=== PATIENT | female | born 1950 | race Caucasian/White ===

== ENCOUNTER → 2017-03-05 | Outpatient (CLI) | payer MEDICARE ==
[~2017-03-05] MED LIST: ASPI81TA85 PO; CLEO150C PO; COLA100C3 PO; DOXY100T16 PO; ELIQ5TAB PO; GABA-282 PO; GLIP5TAB8 PO; HYDR12.55 PO; LOVA20TA2 PO; MECL-68 PO; MELA1TAB15 PO; METF-699 PO; METF500T PO; OXYC-517 PO; OXYC1TAB23 PO; PERC5TAB6 PO; PRAV1TAB39 PO; PRIL20CA9 PO; SENN8.6C PO; SILV-4 TOP; SYNT50TA PO; TRAM50TA2 PO; TYLE325T5 PO; VITA100041 PO; VITA100066 PO; VITMTA PO; WOMETAB2 PO; ZOLO50TA PO
--- NOTE | 2017-03-06 07:36 | RADONC ---
RADIATION ONCOLOGY FOLLOWUP NOTE DATE: 03/05/2017 CHART NUMBER: [id number]. DIAGNOSIS: Pleomorphic leiomyosarcoma. Stage: III, [id number]. ECOG PERFORMANCE STATUS: 0. FOLLOWUP NOTE: Ms. 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 The patient presents today reporting that she is doing quite well with no complaints at this time related to her radiation therapy or disease other than lymphedema of her lower right extremity. The patient had a corrective skin flap placed over her surgical wound, which is now sealed and healed nicely. REVIEW OF SYSTEMS: The patient's review of systems is largely noncontributory except for lymphedema of her right lower extremity. Denies nausea, vomiting, fevers, chills, night sweats, diplopia, headaches, anxiety or depression, anorexia, weight loss, visual disturbances, chest pain, urinary or bowel difficulties, bone pain, or neurological problems. PHYSICAL EXAMINATION: The patient is a well-developed, well-nourished, white female in no acute distress. HEENT: Exam is normocephalic, atraumatic. Extraocular movements are intact. There is no palpable cervical, supraclavicular, infraclavicular, axillary or inguinal lymphadenopathy present. Her lungs are clear to auscultation and percussion. Her heart has regular rate and rhythm. Her abdomen is benign with no hepatosplenomegaly, masses or tenderness. Skeletal examination reveals no tenderness to pressure or percussion of the bony skeleton. Extremities reveal marked pitting edema of her right lower extremity. There is a healed surgical scar present with a surgical corrected flap. There is no opening or sign of infection. There is no sign of drainage. ASSESSMENT: The patient is clinically stable at this point. A previous CT scan of the lung done 04/03/2016 showed a 2 cm nodule present. This is being followed by Dr. Britton with routine CT scans of the chest in [place]. In addition, Dr. Britton is ordering MRIs of the leg and following those closely. She is also being seen in the lymphedema clinic as well as the wound center. I do not have access to any of this patient's CT scans at the present time and I will defer to Dr. Britton with regards to following her lung nodule. I did have a lengthy discussion with the patient and her to let her know that this needs to be followed closely. They report that they are scheduled see Dr. Britton within the next couple of weeks and that another CT scan is planned. I have set the patient up for routine followup in our office in 6 months' time. cc: *Randolph Rodarte MD *Saw Britton MD
== END ==
LOC: M ONCR 11:09
PROVIDERS: ATTEND Radiology Radiation Oncology
DX: C49.21 Malignant neoplasm of connective and soft tissue of right lower limb, including hip (principal)

== ENCOUNTER 2017-03-16 09:15 | Outpatient (RCR) | payer MEDICARE | END 2017-03-18 | LOC: M PT 09:15 | PROVIDERS: ATTEND Surgery | DX: Z51.89 Encounter for other specified aftercare (principal); I89.0 Lymphedema, not elsewhere classified | CPT/HCPCS: 97140; 97162; G8978; G8979 ==

== ENCOUNTER 2017-04-02 10:00 | Outpatient (RCR) | payer MEDICARE | END 2017-04-05 15:16 | disposition home or self-care (01) | LOC: M PT 10:00 | PROVIDERS: ATTEND Surgery | DX: Z51.89 Encounter for other specified aftercare (principal); I89.0 Lymphedema, not elsewhere classified | CPT/HCPCS: 97140; G8978; G8979; G8980 ==

== ENCOUNTER → 2017-08-29 | Outpatient (CLI) | payer MEDICARE ==
[~2017-08-29] MED LIST changes: -COLA100C3 PO; +COLA100C5 PO; -METF500T PO; +METF500T13 PO; +PERC5TAB12 PO; -PERC5TAB6 PO; +VITA-182 PO; -VITA100041 PO
--- NOTE | 2017-08-30 10:56 | RADONC ---
RADIATION ONCOLOGY FOLLOWUP NOTE: DATE: 08/29/2017 CHART NUMBER: [id number] DIAGNOSIS: Pleomorphic leiomyosarcoma. STAGE: III, [id number] ECOG PERFORMANCE STATUS: 0 Ms. 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 The patient presents today reporting that she is doing extremely well with no complaints at this time related to her radiation therapy or disease. She has no leg discomfort or other problems. The patient reports that she has just been seen in Dr. Britton's office where she has had MRIs as well as CT scans and chest x-rays. She was told, just the other day that she is totally disease-free with no evidence of malignancy. REVIEW OF SYSTEMS: The patient's review of systems is noncontributory. She denies nausea, vomiting, fevers, chills, night sweats, diplopia, headaches, anxiety or depression, anorexia, weight loss, visual disturbances, chest pain, urinary or bowel difficulties, bone pain, or neurological problems. PHYSICAL EXAMINATION: The patient is a well-developed, well-nourished female in no acute distress. HEENT exam is normocephalic, atraumatic. Extraocular movements are intact. There is no palpable cervical, supraclavicular, infraclavicular, axillary, or inguinal lymphadenopathy present. Lungs are clear to auscultation and percussion. Heart has a regular rate and rhythm. Abdomen is benign with no hepatosplenomegaly, masses, or tenderness. Skeletal examination reveals no tenderness to pressure or percussion of the bony skeleton. Extremities reveal a right thigh with a healed surgical scar and flap. There is no evidence of nodularity ulceration or recurrent disease. Neurologic exam is grossly intact, as is the remainder of the physical examination. ASSESSMENT: The patient is clinically stable at this point. Since she is being seen and managed so closely by Dr. Britton in [place] and all x-rays and other studies are being done there, I have discharged her from our followup at this time. I have reassured her that she is in excellent hands with him. I made clear that we are available to her at anytime if we could provide her with any information or be of any assistance whatsoever. cc: MD Saw Reese MD
== END ==
LOC: M ONCR 13:15
PROVIDERS: ATTEND Radiology Radiation Oncology
DX: C49.21 Malignant neoplasm of connective and soft tissue of right lower limb, including hip (principal)

== ENCOUNTER 2017-10-03 10:11 | Outpatient (RCR) | payer MEDICARE | END 2017-10-18 | LOC: M PT 10:11 | PROVIDERS: ATTEND Surgery | DX: I89.0 Lymphedema, not elsewhere classified (principal) | CPT/HCPCS: 97162; G8978; G8979; G8980 ==

== ENCOUNTER → 2017-11-08 | Outpatient (CLI) | payer MEDICARE ==
[~2017-11-08] MED LIST changes: +GASTROGRAFIN SOLUTION 30ML (Q9963) As Ordered ONE; +ISOVUE-370 76% 100ML VIAL (Q9967) As Ordered ONE
[2017-11-08 14:10] LABS: CREATININE FOR GFR 1.95 MG/DL (0.55-1.02); GLOMERULAR FILTRATION RATE 27.3 (>45)
--- NOTE | 2017-11-08 16:26 | REP ---
CT ABDOMEN AND PELVIS WITH AND WITHOUT CONTRAST: TECHNIQUE: Axial noncontrast images through the abdomen followed by contrast-enhanced images through the abdomen and pelvis using 100 mL Isovue 370 intravenous contrast material, with coronal and sagittal reformations. COMPARISON: 10/19/2015, 08/06/2016 There are mild interstitial fibrotic changes in the visualized lung bases. There is diffuse fatty infiltration of the liver. No liver mass is seen. The patient has had a prior cholecystectomy. There is mild prominence of the common bile duct measuring up to about 10 mm but this is expected in a patient of this age, status post cholecystectomy. The spleen, adrenals, pancreas are unremarkable. There are multiple bilateral renal calculi seen on the precontrast images. The largest stone in the right lower pole collecting system measures 7 mm. A smaller stone is seen in the right mid kidney. There are two adjacent stones in the left upper pole, a couple of small stones in the mid aspect and a large stone in the left lower pole measures 9 mm. There is a 1 cm calculus seen in the left renal pelvis of the left lower pole moiety. Left renal collecting system is duplicated. There is no hydroureter bilaterally. IVC filter is noted. Mild atherosclerotic calcifications are seen of the abdominal aorta without aneurysm. No adenopathy is seen. Urinary bladder is very mildly distended and grossly unremarkable. The patient appears to have had a hysterectomy. No pelvic mass is seen. I see no area of bowel wall thickening. No inguinal adenopathy is seen. IMPRESSION: Diffuse fatty infiltration of the liver. The patient is status post cholecystectomy with expected prominent size of common bile duct. Bilateral renal calculi. The left renal collecting system is duplicated with a 1 cm calculus in the renal pelvis of the lower pole moiety. No hydroureter. No hydronephrosis. No adenopathy in the abdomen or pelvis. No pelvic mass. IVC filter. Signed by Maninder Amaya MD 11/08/2017 08:43 P
== END ==
LOC: M LAB 12:57
PROVIDERS: ATTEND Orthopaedic Surgery
DX: C49.21 Malignant neoplasm of connective and soft tissue of right lower limb, including hip (principal); K76.0 Fatty (change of) liver, not elsewhere classified
CPT/HCPCS: 36415; 74178; 82565; 84520; Q9963; Q9967

== ENCOUNTER → 2017-11-27 | Outpatient (REF) | payer MEDICARE | LOC: M LAB REF 13:50 | DX: J11.1 Influenza due to unidentified influenza virus with other respiratory manifestations (principal) | CPT/HCPCS: 87804 ==

== ENCOUNTER 2018-04-02 09:54 | Outpatient (RCR) | payer MEDICARE | END 2018-04-18 | LOC: M PT 09:54 | DX: Z51.89 Encounter for other specified aftercare (principal); I89.0 Lymphedema, not elsewhere classified | CPT/HCPCS: 97162 ==

== ENCOUNTER → 2018-06-03 | Outpatient (REF) | payer MEDICARE ==
[2018-06-03 14:09] LABS: URIC ACID 5.5 MG/DL (2.6-6.0)
== END ==
LOC: M LAB REF 13:40
DX: N20.0 Calculus of kidney (principal)
CPT/HCPCS: 84550

== ENCOUNTER → 2018-08-08 | Outpatient (REF) | payer MEDICARE ==
[2018-08-08 15:11] LABS: TOTAL PROTEIN,RANDOM URINE 69.3 MG/DL (0.0-12.0); URINE TOTAL PROTEIN 69.3 MG/DL (0-12)
[2018-08-12 14:47] LABS: TOTAL PROTEIN 7.6 GM/DL (6.4-8.2)
[2018-08-13 11:15] LABS: ALBUMIN % 55.2 % (55.8-66.1); ALPHA-1-GLOBULIN % 4.8 % (2.9-4.9); ALPHA-1-GLOBULINS 0.36 GM/DL (0.17-0.41); ALPHA-2-GLOBULINS 0.98 GM/DL (0.42-0.99); ALPHA-2-GLOBULINS % 12.9 % (7.1-11.8); BETA-1-GLOBULINS % 6.6 % (4.7-7.2); BETA-2-GLOBULINS 0.43 GM/DL (0.19-0.55); BETA-2-GLOBULINS % 5.6 % (3.2-6.5); GAMMA GLOBULIN % 14.9 % (11.1-18.8); GAMMA GLOBULINS 1.13 GM/DL (0.65-1.58)
[2018-08-13 14:27] LABS: ANCA-ATYPICAL <1:20 titer (Neg:<1:20); ANTI DOUBLE STRAND-DNA AB <1 IU/mL (0-9); ANTINUCLEAR ANTIBODIES DIRECT Negative (Negative); CYTOPLASMIC NEUTROP AB ANCA-C <1:20 titer (Neg:<1:20); PERINUCLEAR AB ANCA-P <1:20 titer (Neg:<1:20)
== END ==
LOC: M LAB REF 14:02
DX: N18.3 Chronic kidney disease, stage 3 (moderate) (principal); R80.9 Proteinuria, unspecified
CPT/HCPCS: 84165

== ENCOUNTER 2018-10-02 14:57 | Outpatient (RCR) | payer MEDICARE | END 2018-10-18 | LOC: M PT 14:57 | DX: Z51.89 Encounter for other specified aftercare (principal); I89.0 Lymphedema, not elsewhere classified | CPT/HCPCS: 97162 ==

== ENCOUNTER → 2018-10-08 | Outpatient (REF) | payer MEDICARE ==
[2018-10-09 14:14] LABS: C-PEPTIDE 8.6 ng/mL (1.1-4.4)
== END ==
LOC: M LAB REF 12:03
DX: E11.65 Type 2 diabetes mellitus with hyperglycemia (principal)
CPT/HCPCS: 84681

== ENCOUNTER → 2019-02-06 | Outpatient (REF) | payer MEDICARE ==
[~2019-02-06] MED LIST changes: -GABA-282 PO; +GABA-843 PO; -GASTROGRAFIN SOLUTION 30ML (Q9963) As Ordered ONE; -ISOVUE-370 76% 100ML VIAL (Q9967) As Ordered ONE
== END ==
LOC: M LAB REF 13:07
PROVIDERS: ATTEND Internal Medicine Nephrology
DX: E11.22 Type 2 diabetes mellitus with diabetic chronic kidney disease (principal)

== ENCOUNTER 2019-04-01 09:54 | Outpatient (RCR) | payer MEDICARE | END 2019-04-18 | LOC: M PT 09:54 | PROVIDERS: ATTEND Surgery | DX: I89.0 Lymphedema, not elsewhere classified (principal); Z51.89 Encounter for other specified aftercare ==

== ENCOUNTER 2019-05-08 11:23 | Day surgery (SDC) | payer MEDICARE ==
[~2019-05-08] VITALS: Ht 162.6 cm; Wt 75.3 kg
[~2019-05-08 11:23] MED LIST changes: +MYRB25TA PO; +NS 1,000 ML IV ONE; +PIOG1TAB36 PO; +POTA1TAB21 PO; +SENN18TA PO; +TRUL0.5I SC
[2019-05-08] MEDS ORDERED: LIDOCAINE 2% INJ 100 MG/5 ML SDV (FOR ANES.) As Ordered ONE (12:15)
[2019-05-08] MEDS ORDERED: PROPOFOL 200 MG/20 ML VIAL As Ordered ONE (12:15)
--- NOTE | 2019-05-08 13:08 | ROOR ---
Patient Name: Ne Bond Procedure Date: 05/08/2019 12:41 PM Date of : 1950 Age: 69 Room: [facility] Gender: Female Note Status: Finalized Procedure: Colonoscopy Indications: Screening for colorectal malignant neoplasm Providers: Khadar Ruiz Jr, MD Referring MD: Darnell Leong MD Requesting Provider: Medicines: Propofol per Anesthesia Complications: No immediate complications. Procedure: Pre-Anesthesia Assessment: - Prior to the procedure, a History and Physical was performed, and patient medications and allergies were reviewed. The patient is competent. The risks and benefits of the procedure and the sedation options and risks were discussed with the patient. All questions were answered and informed consent was obtained. Patient identification and proposed procedure were verified by the physician and the nurse in the pre-procedure area and in the procedure room. Mental Status Examination: alert and oriented. Airway Examination: normal oropharyngeal airway and neck mobility. Respiratory Examination: clear to auscultation. CV Examination: normal. ASA Grade Assessment: II - A patient with mild systemic disease. After reviewing the risks and benefits, the patient was deemed in satisfactory condition to undergo the procedure. The anesthesia plan was to use moderate sedation / analgesia (conscious sedation). Immediately prior to administration of medications, the patient was re-assessed for adequacy to receive sedatives. The heart rate, respiratory rate, oxygen saturations, blood pressure, adequacy of pulmonary ventilation, and response to care were monitored throughout the procedure. The physical status of the patient was re-assessed after the procedure. The Colonoscope was introduced through the anus and advanced to the cecum, identified by appendiceal orifice and ileocecal valve. The colonoscopy was performed without difficulty. The patient tolerated the procedure well. The quality of the bowel preparation was adequate. Findings: The rectum, sigmoid colon, transverse colon, ascending colon, cecum, appendiceal orifice and ileocecal valve appeared normal. A small polyp was found in the descending colon. The polyp was sessile. The polyp was removed with a hot snare. Resection and retrieval were complete. Non-bleeding internal external and internal hemorrhoids were found during endoscopy. The hemorrhoids were moderate. Impression: - The rectum, sigmoid colon, transverse colon, ascending colon, cecum, appendiceal orifice and ileocecal valve are normal. - One small polyp in the descending colon, removed with a hot snare. Resected and retrieved. - Non-bleeding internal external and internal hemorrhoids. Recommendation: - Repeat colonoscopy in 5 years for surveillance. Khadar Ruiz MD Khadar Ruiz Jr, MD 05/08/2019 1:08:06 PM Electronically signed by Khadar Ruiz Jr, MD Number of Addenda: 0 Note Initiated On: 05/08/2019 12:41 PM Estimated Blood Loss: Estimated blood loss: none.
[2019-05-08 13:47] VITALS: BP 109/68
== END 2019-05-08 13:49 | disposition home or self-care (01) ==
LOC: M OPP 11:23
PROVIDERS: ATTEND Surgery
DX: Z12.11 Encounter for screening for malignant neoplasm of colon (principal); K64.8 Other hemorrhoids; D12.4 Benign neoplasm of descending colon; Z79.82 Long term (current) use of aspirin; Z79.899 Other long term (current) drug therapy; Z88.5 Allergy status to narcotic agent; Z88.4 Allergy status to anesthetic agent; Z88.8 Allergy status to other drugs, medicaments and biological substances

== ENCOUNTER 2019-05-20 14:05 | Day surgery (SDC) | payer MEDICARE ==
[~2019-05-20] VITALS: Ht 162.6 cm; Wt 75.0 kg
[~2019-05-20 14:05] MED LIST changes: -NS 1,000 ML IV ONE
--- NOTE | 2019-05-20 14:54 | REP ---
Clinical: Right flank pain. Technique: Axial noncontrast images from the lung bases to the pubic symphysis with coronal and sagittal re-formations. Findings: Moderate acute right-sided obstructive uropathy with a 8 mm obstructing calculus at the ureteropelvic junction (images [id number]). Associated perinephric stranding and proximal hydroureteronephrosis noted as well as 9 mm nonobstructing intrarenal calculus. Left kidney demonstrates multiple intrarenal calculi measuring up to approximately 11 mm. Liver, spleen, pancreas, and bilateral adrenal glands are normal. Prior cholecystectomy. The enteric system is without obstruction or acute inflammatory process. Colonic and sigmoid diverticula noted without acute diverticulitis. Pelvis demonstrates normal bladder and evidence for prior hysterectomy. No ascites. No free air. No adenopathy. Abdominal aorta without aneurysm. Infrarenal IVC filter noted. Musculoskeletal structures demonstrate degenerative changes. Lung bases demonstrate chronic changes trace right basilar atelectasis. Impression: 1. Acute moderate right-sided obstructive uropathy with 8 mm obstructing calculus in the ureteropelvic junction along with multiple bilateral renal calculi. 2. Diverticulosis without acute diverticulitis. Electronically Signed by Dileep Bruce MD 05/20/2019 02:45 P
[2019-05-20 15:02] LABS: BASO % 0.4 % (0.0-1.0); EOS # 0.2 10^3/uL (0.0-0.50); EOS % 2.2 % (0.0-3.0); HEMATOCRIT 40.7 % (36.0-47.0); HEMOGLOBIN 13.5 g/dl (12.0-15.5); LYMPH # 1.4 10^3/uL (1.5-4.5); LYMPH % 19.4 % (24.0-44.0); MEAN CORPUSCULAR HEMOGLOBIN 33.1 pg (27.0-33.0); MEAN CORPUSCULAR HGB CONC 33.2 g/dl (32.0-36.5); MEAN CORPUSCULAR VOLUME 99.8 fl (80.0-96.0); MONO # 0.6 10^3/uL (0.0-0.8); MONO % 8.1 % (0.0-5.0); NEUTROPHILS % 69.5 % (36.0-66.0); PLATELET COUNT, AUTOMATED 233 10^3/uL (150-450); RED BLOOD COUNT 4.08 10^6/uL (4.00-5.40); WHITE BLOOD COUNT 7.2 10^3/uL (4.0-10.0)
[2019-05-20 15:27] LABS: ALBUMIN 3.7 GM/DL (3.2-5.2); ALT/SGPT 22 U/L (12-78); BILIRUBIN,DIRECT < 0.1 MG/DL (0.0-0.2); BILIRUBIN,TOTAL 0.2 MG/DL (0.2-1.0); BLOOD UREA NITROGEN 31 MG/DL (7-18); CALCIUM LEVEL 8.9 MG/DL (8.8-10.2); CARBON DIOXIDE LEVEL 28 MEQ/L (21-32); CHLORIDE LEVEL 104 MEQ/L (98-107); CREATININE FOR GFR 1.76 MG/DL (0.55-1.30); GLOMERULAR FILTRATION RATE 30.6 (>45); GLUCOSE, FASTING 101 MG/DL (70-100); POTASSIUM SERUM 3.9 MEQ/L (3.5-5.1); SODIUM LEVEL 140 MEQ/L (136-145); TOTAL PROTEIN 7.3 GM/DL (6.4-8.2)
[2019-05-20] MEDS ORDERED: NS 1,000 ML IV ONE (15:45)
[2019-05-20] MEDS ORDERED: fentaNYL 100 MCG/2 ML INJECTION (J3010) IV ONE (15:45)
[2019-05-20] MEDS ORDERED: ONDANSETRON 4MG/2ML VIAL (J2405) IV ONE (16:00)
[2019-05-20] MEDS ORDERED: fentaNYL 100 MCG/2 ML INJECTION (J3010) As Ordered ONE (18:23)
[2019-05-20] MEDS ORDERED: MIDAZOLAM INJ 2 MG/2 ML VIAL (J2250) As Ordered ONE (18:23)
[2019-05-20] MEDS ORDERED: PROPOFOL 200 MG/20 ML VIAL As Ordered ONE ×2 (18:24→19:40)
[2019-05-20] MEDS ORDERED: LIDOCAINE 2% INJ 100 MG/5 ML SDV (FOR ANES.) As Ordered ONE (18:24)
--- NOTE | 2019-05-20 18:28 | SMCUROLCON ---
Urology Consultation General Date of Consultation 05/20/19 Reason For Consultation This patient is seen for Right Flank Pain. History of Present Illness The patient is a 69-year-old female with a past medical history for renal calculus. In 2015, she was diagnosed with leiomyosarcoma and is currently LUIS. Kidney stones are followed by physicians in [facility] u[facility]. She's been for the most part asymptomatic for several years until today at 11:00 this morning. She developed right flank pain nausea associated with eating small amount of popcorn and sips of coke. She came to the emergency room. Allergies Allergies: Coded Allergies: iodine (Verified Allergy, Intermediate, RADIOACTIVE IODINE, RASH, 04/30/19) morphine (Verified Adverse Reaction, Intermediate, N/V, 04/30/19) pentazocine (Verified Adverse Reaction, Intermediate, N/V, 04/30/19) sumatriptan (Verified Adverse Reaction, Unknown, vomitting, 04/30/19) Review of Systems Gastrointestinal: Reports: Nausea Genitourinary: Denies: Dysuria, Frequency, Incontinence, Hematuria, Retention, Other Symptoms Hematologic: Denies: Bruising, Bleeding Excessively, Petecchia, Purpura, Enlarged Lymph Nodes, Other Hematologic Endocrine: Denies: Polydipsia, Polyphagia, Polyuria, Heat Intolerance, Cold Intolerance, Other Endocrine Sx Musculoskeletal: Denies: Neck Pain, Back Pain, Shoulder Pain, Arm Pain, Hand Pain, Leg Pain, Foot Pain, Joint Pain, Muscle Pain, Spasms, Other Symptoms Neurological: Denies: Weakness, Numbness, Incoordination, Change in Speech, Confusion, Seizures, Other Symptoms Psych: Denies: Mood Normal, Anxiety, Depression, Memory Issues, Thoughts of Self Harm, Anger, Thoughts of harming Other, Other Psych Physical Examination General Exam: No: Alert, Cooperative, No Acute Distress, Mild Distress, Moderate Distress, Severe Distress, Other EYE EXAM: No: PERRLA, Conjunctiva & lids normal, EOMI, Sclera icteric, Ptosis, Other Eye Symptoms ENT EXAM: No: Atraumatic, Mucous membr. moist/pink, Pharynx Normal, Tongue Midline, Pharyngeal Edema, Nares Patent, Tympanic Membranes Normal, Ext Auditory Canal Nml, Pinna Normal, Other ENT Abdomen Exam: No: Normal Bowel Sounds, BS Hyperactive, BS Hypoactive, Soft, Tenderness, Hepatospenomegaly, Mass, Hernia, Other Vital Signs/I&O Vital Signs Date Time Temp Pulse Resp B/P (MAP) Pulse Ox O2 Delivery O2 Flow Rate FiO2 05/20/19 17:46 97.6 74 20 142/74 (96) 98 Room Air Laboratory Data 24H Labs Laboratory Tests 2 05/20/19 14:36: Urine Color YELLOW, Urine Appearance TURBIDH, Urine pH 7.0, Urine Specific Grandy 1.016, Urine Protein 1+H, Urine Glucose (UA) 1+H, Urine Ketones 1+H, Urine Blood NEGATIVE, Urine Nitrite NEGATIVE, Urine Bilirubin NEGATIVE, Urine Urobilinogen 0.2, Urine Leukocyte Esterase 1+H, Urine WBC (Auto) 10H, Urine RBC (Auto) 16H, Urine Hyaline Casts (Auto) 0, Urine Bacteria (Auto) NEGATIVE, Urine Squamous Epithelial Cells 4, Urine Amorphous Sediment SMALLH, Urine Mucus (Auto) SMALL, Urine Sperm (Auto) 05/20/19 14:46: Immature Granulocyte % (Auto) 0.4, White Blood Count 7.2, Red Blood Count 4.08, Hemoglobin 13.5, Hematocrit 40.7, Mean Corpuscular Volume 99.8H, Mean Corpuscular Hemoglobin 33.1H, Mean Corpuscular Hemoglobin Concent 33.2, Red Cell Distribution Width 12.4, Platelet Count 233, Neutrophils (%) (Auto) 69.5H, Lymphocytes (%) (Auto) 19.4L, Monocytes (%) (Auto) 8.1H, Eosinophils (%) (Auto) 2.2, Basophils (%) (Auto) 0.4, Neutrophils # (Auto) 5.0, Lymphocytes # (Auto) 1.4L, Monocytes # (Auto) 0.6, Eosinophils # (Auto) 0.2, Basophils # (Auto) 0.0, Nucleated Red Blood Cells % (auto) 0.0, Anion Gap 8, Glomerular Filtration Rate 30.6L, Calcium Level 8.9, Aspartate Amino Transf (AST/SGOT) 15, Alanine Aminotransferase (ALT/SGPT) 22, Alkaline Phosphatase 105, Total Bilirubin 0.2, Direct Bilirubin < 0.1, Total Protein 7.3, Albumin 3.7, Albumin/Globulin Ratio 1.03 CBC/BMP Laboratory Tests 05/20/19 14:46 Red Blood Count 4.08, Mean Corpuscular Volume 99.8 H, Mean Corpuscular Hemog lobin 33.1 H, Mean Corpuscular Hemoglobin Concent 33.2, Red Cell Distribution Width 12.4, Neutrophils (%) (Auto) 69.5 H, Lymphocytes (%) (Auto) 19.4 L, Monocytes (%) (Auto) 8.1 H, Eosinophils (%) (Auto) 2.2, Basophils (%) (Auto) 0.4, Neutrophils # (Auto) 5.0, Lymphocytes # (Auto) 1.4 L, Monocytes # (Auto) 0.6, Eosinophils # (Auto) 0.2, Basophils # (Auto) 0.0 Microbiology Microbiology 05/20/19 Urine Culture, Received Pending Assessment CT scan abdomen and pelvis consistent with an 8 mm stone at the UPJ, with perinephric stranding kidney. Physical exam associated with uncontrollable pain and nausea consistent with the right kidney stone obstruction Plan Right ureteral stent placement to relieve the obstruction Time Spent on Consult: Time Spent / Consult (Minutes): 30 MAHAD EISENBERG MD May 20, 2019 18:28
[2019-05-20] MEDS ORDERED: D200CAP2 PO (18:38)
[2019-05-20] MEDS ORDERED: CONRAY-60 60% 50ML VIAL (Q9961) As Ordered ONE (19:21)
[2019-05-20] MEDS ORDERED: ONDANSETRON 4MG/2ML VIAL (J2405) As Ordered ONE (19:48)
[2019-05-20 21:27] VITALS: BP 132/88
--- NOTE | 2019-05-20 22:17 | ROOPDOC ---
[facility] Report Of Operation Report of Operation DATE OF PROCEDURE: 05/20/19 PREPROCEDURE DIAGNOSES: [Right Obstructing renal calculus]. POSTPROCEDURE DIAGNOSES: [The same]. PROCEDURE: [Cystoscopy, right retrograde pyelogram and right ureteral stent placement, size 7 Taiwanese]. SURGEON: [Robel]MD CATHETERIZATION LABORATORY TECHNICIAN: [None], ANESTHESIA: [Sedation]. ESTIMATED BLOOD LOSS: Approximately [minimal] mL. COMPLICATIONS: [None]. REMARKS: . PROCEDURE NOTE: . DESCRIPTION OF PROCEDURE: Consents were signed prior to procedure. Patient was brought to procedure room. Patient was identified as self. She was given sedation for anesthesia. Prepped and draped in standard fashion. A 22 Taiwanese cystoscope was placed through urethra into the bladder. The bladder was inspected. No pathology noted. Pollack catheter was used to cannulate the right ureteral orifice. Contrast material was injected into the right ureter into the kidney. A retrograde pyelogram was perform. An Obstructed area was noted at the UPJ. A 0.38 Guide wire was used to cannulate the renal pelvis. Pollack catheter was then removed. A 7 Taiwanese double-J stent was placed over the wire and coiled into the renal pelvis and the bladder. This was done under direct visualization using fluoroscopic guidance. The kidney was draining extensively at the end of the procedure through the stent. The bladder was drained. The cystoscope was removed. Patient was properly washed off and awakened from anesthesia and taken to the recovery room. The plan for this patient is to follow-up in the urology clinic and to received a cystoscopy, right retrograde pyelogram, ureteroscopy with laser lithotripsy, stone retrieval and possibly replacement of the stent to be scheduled. MAHAD EISENBERG MD May 20, 2019 22:17
--- NOTE | 2019-05-21 09:35 | REP ---
Clinical: Right ureteral stent placement. Technique: Intraoperative fluoroscopic imaging using portable C-arm technique. Findings: Two images demonstrate mild hydronephrosis with right ureteral stent extending into the renal pelvis. Total fluoroscopic time 14 seconds. IVC filter identified at the L2-3 level. Impression: Right ureteral stent placement. Electronically Signed by Dileep Bruce MD 05/21/2019 09:26 A
== END 2019-05-20 21:27 | disposition home or self-care (01) ==
LOC: M ED 15:21 → M SDC 18:34
PROVIDERS: ATTEND Urology
DX: N20.0 Calculus of kidney (principal); E78.49 Other hyperlipidemia; E03.9 Hypothyroidism, unspecified; Z86.711 Personal history of pulmonary embolism; Z79.01 Long term (current) use of anticoagulants; G43.909 Migraine, unspecified, not intractable, without status migrainosus; E11.9 Type 2 diabetes mellitus without complications; Z79.899 Other long term (current) drug therapy
CPT/HCPCS: 52332; 74176; 74420; 80048; 80076; 81001; 85025; 96361; 96374; 96375; 99284; C1769; C2617; J2250; J2405; J3010; Q9961

== ENCOUNTER → 2019-06-19 | Outpatient (CLI) | payer MEDICARE ==
[~2019-06-19] MED LIST changes: +D200CAP2 PO
--- NOTE | 2019-06-19 13:23 | REP ---
Clinical: Preoperative assessment . Comparison: 11/09/2016 . Technique: PA and lateral. Findings: The mediastinum and cardiac silhouette are normal. The lung dawson are clear and without acute consolidation, effusion, or pneumothorax. The skeletal structures are intact and normal. Impression: 1. No acute cardiopulmonary process. Electronically Signed by Dileep Bruce MD 06/19/2019 01:14 P
[2019-06-19 13:25] LABS: HEMATOCRIT 37.7 % (36.0-47.0); HEMOGLOBIN 12.2 g/dl (12.0-15.5); MEAN CORPUSCULAR HGB CONC 32.4 g/dl (32.0-36.5); MEAN CORPUSCULAR VOLUME 101.9 fl (80.0-96.0); PLATELET COUNT, AUTOMATED 254 10^3/uL (150-450); WHITE BLOOD COUNT 6.5 10^3/uL (4.0-10.0)
[2019-06-19 13:41] LABS: INR 1.51; PROTHROMBIN TIME 17.9 SECONDS (11.8-14.0)
[2019-06-19 13:42] LABS: PARTIAL THROMBOPLASTIN TIME 31.5 SECONDS (25.0-38.4)
[2019-06-19 13:59] LABS: CALCIUM LEVEL 9.2 MG/DL (8.8-10.2); CREATININE FOR GFR 1.79 MG/DL (0.55-1.30); POTASSIUM SERUM 3.6 MEQ/L (3.5-5.1)
[2019-06-19 15:43] LABS: APPEARANCE, URINE CLOUDY (CLEAR); BACTERIA, URINE AUTO NEGATIVE (NEGATIVE); BILIRUBIN, URINE AUTO NEGATIVE (NEGATIVE); BLOOD, URINE BLOOD 3+ (NEGATIVE); COLOR, URINE YELLOW (YELLOW); GLUCOSE, URINE (UA) AUTO 1+ mg/dL (NEGATIVE); KETONE, URINE AUTO NEGATIVE (NEGATIVE); LEUKOCYTE ESTERASE, URINE AUTO 3+ (NEGATIVE); MUCUS, URINE SMALL (NEGATIVE); NITRITE, URINE AUTO NEGATIVE (NEGATIVE); PROTEIN, URINE AUTO 2+ mg/dL (NEGATIVE); RBC, URINE AUTO 102 /HPF (0-3); SPECIFIC GRAVITY URINE AUTO 1.018 (1.002-1.035); SQUAMOUS EPITHELIAL CELL UR AU 2 /HPF (0-6); UROBILINOGEN, URINE AUTO 0.2 mg/dL (0.0-2.0); WBC, URINE AUTO TNTC /HPF (0-3)
== END ==
LOC: M LAB 12:29
PROVIDERS: ATTEND Urology
DX: N20.0 Calculus of kidney (principal); Z79.01 Long term (current) use of anticoagulants

== ENCOUNTER 2019-06-27 07:16 | Day surgery (SDC) | payer MEDICARE ==
[~2019-06-27] VITALS: Ht 162.6 cm; Wt 75.7 kg
[~2019-06-27 07:16] MED LIST changes: +LR 1,000 ML IV ONE; +PROPOFOL 200 MG/20 ML VIAL As Ordered ONE; +ceFAZolin SOD 1 GM in D5W MINI-BAG PLUS 50 ML IV ONE
[2019-06-27] MEDS ORDERED: LIDOCAINE 2% INJ 100 MG/5 ML SDV (FOR ANES.) As Ordered ONE (08:00)
[2019-06-27] MEDS ORDERED: PROPOFOL 200 MG/20 ML VIAL As Ordered ONE (08:00)
[2019-06-27] MEDS ORDERED: dexameTHASONE 4 MG/ML 1ML VIAL (J1100) As Ordered ONE (08:01)
[2019-06-27] MEDS ORDERED: SCOPOLAMINE 1MG TRANSDERMAL PATCH As Ordered ONE (08:01)
[2019-06-27] MEDS ORDERED: fentaNYL 100 MCG/2 ML INJECTION (J3010) As Ordered ONE (08:04)
[2019-06-27] MEDS ORDERED: ONDANSETRON 4MG/2ML VIAL (J2405) As Ordered ONE (08:04)
[2019-06-27] MEDS ORDERED: MIDAZOLAM INJ 2 MG/2 ML VIAL (J2250) As Ordered ONE (08:05)
[2019-06-27] MEDS ORDERED: SCOPOLAMINE 1MG TRANSDERMAL PATCH TOP ONE ×2 (08:15→10:15)
[2019-06-27] MEDS ORDERED: CONRAY-60 60% 50ML VIAL (Q9961) As Ordered ONE (08:37)
[2019-06-27] MEDS ORDERED: PERCOCET 5MG/325MG TAB PO PRN ×2 (10:15)
[2019-06-27] MEDS ORDERED: LR 1,000 ML IV SCH (10:15)
[2019-06-27] MEDS ORDERED: METOCLOPRAMIDE INJ 10MG/2ML VIAL (J2765) IV PRN (10:15)
[2019-06-27] MEDS ORDERED: fentaNYL 100 MCG/2 ML INJECTION (J3010) IV PRN (10:15)
[2019-06-27] MEDS ORDERED: ONDANSETRON 4MG/2ML VIAL (J2405) IV PRN (10:15)
[2019-06-27] MEDS ORDERED: MEPERIDINE INJ 25 MG/ML VIAL (J2175) IV PRN (10:15)
--- NOTE | 2019-06-27 11:36 | REP ---
C-ARM VIEWS ABDOMEN DURING RIGHT URETERAL STENT PLACEMENT: Two C-arm views are performed. Right ureteral stent is placed with the proximal end coiled in a partially opacified right renal pelvis and the distal end coiled in the urinary bladder. 6 seconds fluoroscopy time utilized. Electronically Signed by Maninder Amaya MD 06/30/2019 11:14 A
[2019-06-27 12:35] VITALS: BP 127/59
--- NOTE | 2019-06-30 11:57 | RO ---
DATE OF PROCEDURE: 06/27/2019 PREPROCEDURE DIAGNOSIS: Right kidney stones. POSTPROCEDURE DIAGNOSIS: Right kidney stones. PROCEDURE: Cystoscopy, right ureteroscopy with laser lithotripsy and basket extraction of stones, right retrograde pyelogram with intraoperative interpretation of images, right ureteral stent exchange. SURGEON: Jr Plascencia MD RADIOSONDE OPERATOR: None. ANESTHESIA: General. OPERATIVE INDICATIONS: This is a 69-year-old female who was found to have an obstructing 8 mm right ureteropelvic junction stone as well as a 9 mm right kidney stone recently. She had a right ureteral stent placed a few weeks ago. She is here for treatment of her stones. DESCRIPTION OF PROCEDURE: The patient was brought to the operating room where general anesthesia was induced. Prophylactic antibiotics were infused. She was then placed in dorsal lithotomy position and prepped and draped in the usual sterile fashion. A rigid cystoscope was inserted into the urethral meatus and advanced into the bladder. Once inside the bladder, a previously placed stent was grasped and withdrawn until the distal end was seen protruding from the urethral meatus. We then advanced a wire up the stent and then the stent was completely removed. We then advanced a ureteral access sheath over the wire into the right collecting system. We then went up the access sheath with a flexible ureteroscope and the kidney was then thoroughly examined. Within the right kidney both the 8 and 9 mm stones were seen. Both of these stones were fragmented into smaller pieces using a 272 micron laser fiber. All of the fragments were then removed using a basket. Once then the only thing remaining were very tiny stone debris. Once done, a retrograde pyelogram was performed and was notable for mild right hydronephrosis with no extravasation. I then withdrew the ureteroscope along with the access sheath and no distal stones were seen within the ureter. I then utilized the wire to advance a 6 Japanese by 22-32 cm JJ ureteral stent up into the right collecting system. The wire was then removed and there were adequate curls of the stent in the right renal pelvic and in the bladder. The bladder was then emptied of all fluids and this marked the conclusion of the procedure. The patient was taken out of the dorsal lithotomy position, awakened from anesthesia and transported to the recovery room in stable condition. ESTIMATED BLOOD LOSS: 5 mL. COMPLICATIONS: None. SPECIMENS: Kidney stone fragments. PLAN: The patient will follow-up in the clinic in a few weeks for stent removal.
[2019-07-04 00:07] LABS: COMMENT Note: (.); Ca Ox Monohydrate 93 % (.)
== END 2019-06-27 12:42 | disposition home or self-care (01) ==
LOC: M SDC 07:16
PROVIDERS: ATTEND Urology
DX: N20.0 Calculus of kidney (principal); I12.9 Hypertensive chronic kidney disease with stage 1 through stage 4 chronic kidney disease, or unspecified chronic kidney disease; E11.9 Type 2 diabetes mellitus without complications; E78.5 Hyperlipidemia, unspecified; Z79.01 Long term (current) use of anticoagulants; Z79.84 Long term (current) use of oral hypoglycemic drugs; Z92.3 Personal history of irradiation; Z88.5 Allergy status to narcotic agent; Z88.8 Allergy status to other drugs, medicaments and biological substances; K44.9 Diaphragmatic hernia without obstruction or gangrene; R91.1 Solitary pulmonary nodule; F41.9 Anxiety disorder, unspecified; F32.9 Major depressive disorder, single episode, unspecified
CPT/HCPCS: 52356; 74420; 82360; 88300; C1769; J0690; J1100; J2250; J2405; J3010; Q9961

== ENCOUNTER → 2019-07-10 | Outpatient (REF) | payer MEDICARE ==
[~2019-07-10] MED LIST changes: -DOXY100T16 PO; +DOXY100T27 PO; +GABA600T4 PO; -LR 1,000 ML IV ONE; -MECL-68 PO; +MECL1TAB31 PO; +MELATAB7 PO; +POTA1TAB23 PO; -PROPOFOL 200 MG/20 ML VIAL As Ordered ONE; +VENTAER INH; -ceFAZolin SOD 1 GM in D5W MINI-BAG PLUS 50 ML IV ONE
[2019-07-10 14:20] LABS: APPEARANCE, URINE CLOUDY (CLEAR); BACTERIA, URINE AUTO 2+ (NEGATIVE); BILIRUBIN, URINE AUTO NEGATIVE (NEGATIVE); BLOOD, URINE BLOOD 2+ (NEGATIVE); COLOR, URINE YELLOW (YELLOW); GLUCOSE, URINE (UA) AUTO 1+ mg/dL (NEGATIVE); KETONE, URINE AUTO TRACE mg/dL (NEGATIVE); LEUKOCYTE ESTERASE, URINE AUTO 3+ (NEGATIVE); NITRITE, URINE AUTO NEGATIVE (NEGATIVE); PROTEIN, URINE AUTO 2+ mg/dL (NEGATIVE); RBC, URINE AUTO 84 /HPF (0-3); SPECIFIC GRAVITY URINE AUTO 1.018 (1.002-1.035); SQUAMOUS EPITHELIAL CELL UR AU 12 /HPF (0-6); UROBILINOGEN, URINE AUTO 0.2 mg/dL (0.0-2.0); WBC, URINE AUTO TNTC /HPF (0-3)
== END ==
LOC: M LAB REF 12:49
PROVIDERS: ATTEND Physician Assistant
DX: N39.0 Urinary tract infection, site not specified (principal)

== ENCOUNTER 2019-10-02 10:05 | Outpatient (RCR) | payer MEDICARE ==
[~2019-10-02 10:05] MED LIST changes: -GABA600T4 PO; +MECL-68 PO; -MECL1TAB31 PO; -MELATAB7 PO; -POTA1TAB23 PO; -VENTAER INH
[2019-10-06] MEDS ORDERED: VENTAER INH (09:49)
[2019-10-06] MEDS ORDERED: POTA1TAB23 PO (09:49)
[2019-10-06] MEDS ORDERED: GABA600T4 PO (10:59)
[2019-10-06] MEDS ORDERED: MELATAB7 PO (10:59)
== END 2019-10-18 ==
LOC: M PT 10:05
PROVIDERS: ATTEND Surgery
DX: I89.0 Lymphedema, not elsewhere classified (principal)

== ENCOUNTER 2019-10-06 09:08 | Inpatient (IN) | payer MEDICARE ==
[~2019-10-06] VITALS: Ht 162.6 cm; Wt 75.3 kg
[2019-10-06] MEDS ORDERED: ASPIRIN 81 MG CHEW TABLET PO ONE (09:45)
[2019-10-06 09:47] LABS: BASO % 0.5 % (0.0-1.0); EOS # 0.1 10^3/uL (0.0-0.5); EOS % 1.6 % (0.0-3.0); HEMATOCRIT 40.1 % (36.0-47.0); HEMOGLOBIN 12.8 g/dl (12.0-15.5); LYMPH # 1.5 10^3/uL (1.5-5.0); LYMPH % 25.8 % (24.0-44.0); MEAN CORPUSCULAR HEMOGLOBIN 31.7 pg (27.0-33.0); MEAN CORPUSCULAR HGB CONC 31.9 g/dl (32.0-36.5); MEAN CORPUSCULAR VOLUME 99.3 fl (80.0-96.0); MONO # 0.4 10^3/uL (0.0-0.8); MONO % 7.1 % (0.0-5.0); NEUTROPHILS # 3.6 10^3/uL (1.5-8.5); NEUTROPHILS % 64.8 % (36.0-66.0); PLATELET COUNT, AUTOMATED 241 10^3/uL (150-450); RED BLOOD COUNT 4.04 10^6/uL (4.00-5.40); WHITE BLOOD COUNT 5.6 10^3/uL (4.0-10.0)
[2019-10-06] MEDS ORDERED: POTA1TAB23 PO (09:49)
[2019-10-06] MEDS ORDERED: VENTAER INH (09:49)
[2019-10-06 09:57] LABS: INR 1.23; PROTHROMBIN TIME 15.2 SECONDS (11.8-14.0)
[2019-10-06 09:58] LABS: PARTIAL THROMBOPLASTIN TIME 29.1 SECONDS (25.0-38.4)
--- NOTE | 2019-10-06 10:01 | REP ---
Portable chest x-ray: Single view. History: Chest pain. Comparison chest x-ray: June 19, 2019. Findings: The lungs are symmetrically aerated and clear. Pleural angles are sharp. Heart size is normal. EKG electrodes are seen. Pulmonary vasculature is not increased. There are mild degenerative changes in the thoracic spine. Impression: No active disease. Electronically Signed by Randolph Bro MD 10/06/2019 09:53 A
[2019-10-06 10:16] LABS: ALBUMIN 3.7 GM/DL (3.2-5.2); ALT/SGPT 24 U/L (12-78); BILIRUBIN,DIRECT < 0.1 MG/DL (0.0-0.2); BILIRUBIN,TOTAL 0.3 MG/DL (0.2-1.0); BLOOD UREA NITROGEN 28 MG/DL (7-18); CALCIUM LEVEL 9.7 MG/DL (8.8-10.2); CARBON DIOXIDE LEVEL 30 MEQ/L (21-32); CHLORIDE LEVEL 104 MEQ/L (98-107); CK-MB VALUE MASS < 1.0 NG/ML (<3.6); CPK CREATINE PHOSPHOKINASE 76 U/L (26-192); CREATININE FOR GFR 1.77 MG/DL (0.55-1.30); GLOMERULAR FILTRATION RATE 30.4 (>45); GLUCOSE, FASTING 100 MG/DL (70-100); LIPASE 302 U/L (73-393); MB/CK RELATIVE INDEX 1.32 (< OR =4); NT-PRO BNP 26 PG/ML (<125); POTASSIUM SERUM 3.6 MEQ/L (3.5-5.1); SODIUM LEVEL 140 MEQ/L (136-145); TOTAL PROTEIN 7.4 GM/DL (6.4-8.2); TROPONIN I < 0.02 NG/ML (< 0.10)
[2019-10-06] MEDS ORDERED: ACETAMINOPHEN TAB 650MG DOSE (2X325MG) PO ONE (10:45)
[2019-10-06] MEDS ORDERED: MELATAB7 PO (10:59)
[2019-10-06] MEDS ORDERED: GABA600T4 PO (10:59)
--- NOTE | 2019-10-06 11:43 | REP ---
BILATERAL LOWER EXTREMITY DUPLEX DOPPLER VENOUS ULTRASOUND: Real-time compression and duplex Doppler interrogation of bilateral lower extremity deep venous systems was performed. Bilaterally, the common femoral veins and popliteal veins are fully compressible with transducer pressure with no intraluminal thrombus. There is also no intraluminal thrombus of the left femoral vein. The right femoral vein again demonstrates chronic thrombus as seen on multiple prior exams dating back to 11/09/2016, unchanged. IMPRESSION: No acute deep venous thrombosis bilateral lower extremities. 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 Electronically Signed by Maninder Amaya MD 10/07/2019 08:39 P
[2019-10-06 15:50] LABS: CK-MB VALUE MASS < 1.0 NG/ML (<3.6); CPK CREATINE PHOSPHOKINASE 73 U/L (26-192); MB/CK RELATIVE INDEX 1.37 (< OR =4); TROPONIN I < 0.02 NG/ML (< 0.10)
[2019-10-06] MEDS ORDERED: HEPARIN DRIP 25,000 UNITS in IV 1 EA IV SCH (16:07)
[2019-10-06] MEDS ORDERED: SENNA 8.6 MG TAB (SENOKOT) PO PRN (16:15)
[2019-10-06] MEDS ORDERED: MECLIZINE 25 MG TABLET PO PRN (16:15)
[2019-10-06] MEDS ORDERED: GLUCOSE 4 GM CHEW TABLET PO PRN (16:15)
[2019-10-06] MEDS ORDERED: DEXTROSE 50% 50 ML SYRINGE IV PRN (16:15)
[2019-10-06] MEDS ORDERED: GLUCAGON FOR INJ 1 MG VIAL (J1610) SC PRN (16:15)
[2019-10-06] MEDS ORDERED: HEPARIN SOD (PORCINE) 5000 UNITS/ML VIAL IV PRN (16:15)
[2019-10-06] MEDS ORDERED: NITROGLYCERIN 0.4 MG SUBL TABLET SL PRN (16:30)
[2019-10-06] MEDS ORDERED: GI COCKTAIL 50ML BTL(HYOSCYAMINE/MAALOX/LIDOCAINE VISCOUS)(1:3:1) PO PRN (16:30)
[2019-10-06] MEDS: POTASSIUM CHLORIDE 10 MEQ SR TABLET PO SCH (16:37)
[2019-10-06] MEDS: SERTRALINE HCL 50 MG TAB PO SCH (16:37)
[2019-10-06 16:57] LABS: HEMATOCRIT 39.3 % (36.0-47.0); HEMOGLOBIN 12.5 g/dl (12.0-15.5); MEAN CORPUSCULAR HEMOGLOBIN 31.5 pg (27.0-33.0); MEAN CORPUSCULAR HGB CONC 31.8 g/dl (32.0-36.5); PLATELET COUNT, AUTOMATED 225 10^3/uL (150-450); RED BLOOD COUNT 3.97 10^6/uL (4.00-5.40); WHITE BLOOD COUNT 5.7 10^3/uL (4.0-10.0)
[2019-10-06] MEDS: HumaLOG INSULIN (NovoLOG) PER UNIT SC SCH ×2 (17:30→21:00)
--- NOTE | 2019-10-06 17:50 | REPVR ---
PROCEDURE INFORMATION: Exam: CT Chest Without Contrast Exam date and time: 10/06/2019 4:07 PM Clinical history: 69 years old, female; Chest pain TECHNIQUE: Imaging protocol: Computed tomography of the chest without contrast. 3D rendering: MIP reconstructed images were created and reviewed. Radiation optimization: All CT scans at this facility use at least one of these dose optimization techniques: automated exposure control; mA and/or kV adjustment per patient size (includes targeted exams where dose is matched to clinical indication); or iterative reconstruction. COMPARISON: CR PORTABLE CHEST X-RAY 10/06/2019 9:46 AM FINDINGS: Pleural space: There is no evidence of pneumothorax or pleural effusion. There is a 2 CM by 1.5 CM linear density at the right apical portion of the lung contiguous with the pleural surface. This may be scarring. To exclude any possibility of neoplasm recommend followup CT scan in no longer than 4 months for reevaluation and to document stability. The Fleischner criteria can be used. Heart: The heart is normal in size. Aorta: Normal-size aorta. Kidneys and ureters: There is a large staghorn calculus upper pole left kidney. Bones/joints: There are bridging osteophytes of the anterior aspect of the thoracic spine and mild kyphosis. Soft tissues: Normal-appearing soft tissues. IMPRESSION: 2 CM by 1.5 CM linear density right upper lung contiguous with the pleura. This may represent scarring. To exclude any possibility of neoplasm the patient should have a followup CT scan in no longer than 4 months. Electronically signed by: Mumtaz Bay On 10/06/2019 17:50:18 PM
--- NOTE | 2019-10-06 18:05 | ECGEPIP ---
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
--- NOTE | 2019-10-06 18:45 | ECGEPIP ---
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
[2019-10-06] MEDS ORDERED: glipiZIDE *2.5MG* 1/2 TABLET PO SCH (21:00)
[2019-10-06] MEDS ORDERED: APIXABAN 5 MG TAB (ELIQUIS) PO SCH (21:00)
[2019-10-06] MEDS ORDERED: hydroCHLOROthiazide 12.5 MG CAPSULE PO SCH (21:00)
--- NOTE | 2019-10-06 21:34 | HPE ---
DATE OF ADMISSION: 10/06/2019 This is a stat dictation for history and physical due to possible need for consults. CHIEF COMPLAINT: Chest pain. HISTORY OF PRESENT ILLNESS: This is a 69-year-old female with past history significant for factor V Leiden mutation, lower extremity deep vein thrombosis (DVT), saddle embolus bilaterally, leiomyosarcoma of right anterior thigh, status post abdominal flap resection June 2016, follows with Dr. Britton at , lung nodules biopsied in 2016, which were benign, presents to the emergency room with two week history of left-sided anterior chest pain, described as achy that radiates down the left arm. The patient has had no nausea, vomiting, feeling of pending doom, but this was accompanied with some dyspnea at rest, but not exertional. The patient denies any cough, fever, chills at home, has tried heating pads across the chest, but no improvement. The patient has had no history of gastritis, esophagitis or peptic ulcer disease. Does not take any medication for this. No changes in appetite, dysphagia or odynophagia. The chest achiness lasts for several minutes, sometimes hours on end, occurs when the patient is sitting or when she is ambulating, usually has to sit down to catch her breath. Her saturations have been 99% and she denies any hemoptysis and is compliant with her Eliquis for her factor V Leiden mutation and history of deep vein thrombosis (DVT) and pulmonary emboli (PEs). She has not noticed any changes in her lower extremities recently. Has not had any recent travel and has not been bed bound. The patient has had no changes in her medications. Presented to the emergency room for further evaluation. In the emergency room (ER), the patient was found to be 99% on room air. She was in sinus rhythm, ventricular rate of 70 to 78. The patient had creatinine of 1.77, troponin was negative. Electrocardiogram (EKG) was normal without any ST or T wave changes. Creatinine was 1.[address] angiogram could not be done to rule out pulmonary embolism. Venous Dopplers to bilateral lower extremities showed no acute deep vein thromboses (DVTs). There is stable chronic deep vein thrombosis (DVT) involving the right femoral vein. The patient does have an inferior vena cava (IVC) filter. Chest CT shows a 2 cm by 1.5 cm linear density in the right upper lung contiguous with pleura may represent scarring, to exclude the possibility of a neoplasm. The patient should have followup CT no longer than 4 months. There is mild kyphosis and bridging osteophytes of the anterior aspect of the thoracic spine. Large staghorn calculus in the left upper kidney. Hospitalist was called to admit for left-sided anterior chest pain with probable recurrent pulmonary embolism, rule out acute coronary syndrome. PAST MEDICAL HISTORY: 1. Factor V Leiden mutation. 2. Saddle embolus bilaterally. 3. Right lower extremity deep vein thrombosis (DVT). 4. Leiomyosarcoma of the right anterior thigh, status post abdominal flap resection June 2016. 5. Lung nodules with biopsy 2015. Follows with Dr. Britton, Dr. Plummer. 6. History of kidney stones. 7. Anemia. 8. Anxiety. 9. Type 2 diabetes. 10. Hyperlipidemia. 11. Migraines. 12. Vertigo. 13. Methicillin-resistant Staphylococcus aureus (MRSA) in the past. 14. Carpal tunnel. 15. Diabetic neuropathy. 16. Insomnia 17. Vitamin D deficiency. 18. Essential tremors. 19. Chronic kidney disease stage III. 20. Depression. PAST SURGICAL HISTORY: Abdominal skin resection, leiomyosarcoma of the right thigh, hysterectomy, cholecystectomy, diltation and curettage, hemorrhoidectomy. HOME MEDICATIONS: - albuterol 2 puffs inhaled every 4 to 6 hours as needed for wheezing - vitamin D3 2000 units daily - Trulicity 1.5 mg every week - melatonin 5 mg at bedtime (q.h.s.) as needed - Myrbetriq 25 mg daily - pioglitazone 15 mg daily - aspirin 81 mg daily - apixaban (Eliquis) 5 mg twice a day - Colace 100 mg twice a day - gabapentin 600 mg twice a day - glipizide 5 mg twice a day - hydrochlorothiazide 25 mg - meclizine 25 mg as needed for dizziness - multivitamins one tablet at bedtime (q.h.s.) - potassium chloride 10 mEq daily - pravastatin 20 mg at bedtime (q.h.s.) - Senokot 2 tabs as needed for constipation - Zoloft 50 mg daily SOCIAL HISTORY: The patient lives with her , never smoked. No recent travel or sick contact. Has two sons. FAMILY HISTORY: Mother at the age of 90 of old age, had tachybrady syndrome and pacemaker placement. Father at the age of 79 with lymphoma. She has a sister that at the age of 69 of cerebral palsy. She had tachybrady syndrome and in 2016 in October. She has two brothers, older brother with diabetes and kidney stones, younger brother with hypertension and kidney stones. REVIEW OF SYSTEMS: As per history of present illness. 12-point system otherwise negative. PHYSICAL EXAMINATION: Temperature 96.7, pulse 75, sinus rhythm. Respiratory rate is 17. Blood pressure is 133/72, 99% on room air. Generally, the patient is awake, alert, oriented times 3. She has resting head tremors. Pupils are round and reactive to light and accommodation. Extraocular muscles are intact. Normocephalic, atraumatic. Moist mucous membranes. No jugular venous distension (JVD). No thyromegaly. No cervical lymphadenopathy. The patient has no axillary lymphadenopathy. She has full range of motion in her left and right upper extremities. The patient speaks in full sentences. No conversational dyspnea. No use of respiratory or accessory muscles. Anicteric sclerae. No jaundice. The patient has no pallor. Lungs are clear to auscultation. No wheezes, rales or rhonchi. Heart: S1, S2, sinus rhythm. No murmurs, rubs or gallops. Abdomen is soft, obese, nontender, nondistended. Positive bowel sounds in four quadrants. No rebound or guarding or thyromegaly. Extremities: The patient has no cyanosis or clubbing. Skin warm and dry and well perfused. Electrocardiogram (EKG): Sinus rhythm, ventricular rate of 66, DE interval 167, QRS of 76, QT of 394, QTc 408. No ST-T wave changes. No T-wave inversions. LABORATORY DATA: White count 5.6, hemoglobin 12.8, hematocrit 40, platelet count 241. Sodium 140, potassium 3.6, chloride 104, bicarbonate 30, BUN 28, creatinine 1.77, glucose 100. Troponin I less than 0.02 times two. Total CK 76, MB fraction less than 1, relative index 1.32, total bilirubin 0.3, direct bilirubin less than 0.1, AST 13, ALT 24, alkaline phosphatase of 110. Total CK of 76, albumin of 3.7, albumin globulin ratio 1, lipase 302, thyroid simulating hormone (TSH) 2.3, free T3 is 1. The patient's previous creatinine is 1.4 to 1.95. ASSESSMENT AND PLAN: This is a 69-year-old female with history of chronic kidney disease stage III, factor V Leiden mutation, chronic right femoral deep vein thrombosis (DVT), history of saddle embolus, inferior vena cava (IVC) filter placement on chronic Eliquis, dyslipidemia, type 2 diabetes, history of kidney stones, anemia, anxiety, migraines, vertigo, methicillin-resistant Staphylococcus aureus (MRSA), leiomyosarcoma of the right anterior thigh, status post abdominal flap resection, lung nodule biopsy 2015, presents to the emergency room (ER) with two-week history of achiness in left anterior chest going down the left arm, accompanied with occasional shortness of breath. The patient was not tachycardiac or tachypneic, was not hypoxic on arrival; but due to a history of saddle embolus, chronic pulmonary emboli (PE) and factor V Leiden despite being compliant with the Eliquis, is being evaluated for possible pulmonary embolism. Due to chronic kidney disease with a creatinine of 1.77, stage III, the patient is unable to get a CT angiogram of the chest to rule out pulmonary embolism. The patient is admitted for two midnights as an inpatient for the following issues: 1. Chest pain, appears to be atypical. Troponins are negative times two. Electrocardiogram (EKG) is unremarkable, does not show any acute ischemic changes at this time. Due to risk factors of postmenopausal, hypertension, dyslipidemia, metabolic syndrome, the patient will be monitored under telemetry with cardiac markers checked every 6 hours. Repeat electrocardiogram (EKG) serially as well. Dr. Pineda is rn on site this evening. Case has been discussed and I agree with him and he will be available in case we need to consult him. At this time, there was also concern for possible pulmonary embolus (PE) despite being on Eliquis and having an inferior vena cava (IVC) filter. Due to the fact that her creatinine is elevated at 1.77, we are unable to get a CT angiogram with contrast. Therefore, she empirically treated with intravenous heparin drip until a V/Q scan can rule out a pulmonary embolism. 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 She may benefit from Lovenox injections at home. 2. Due to chronic antiplatelets and anticoagulants, aspirin and apixaban, the patient will also be evaluated for possible peptic ulcer disease, gastritis or esophagitis with an upper GI series in the morning. She has been given Protonix 40 mg IV twice a day, as well as a GI cocktail for comfort. Discharge if the patient has no signs of hiatal hernia, peptic ulcer disease, gastritis or esophagitis once the upper GI series was performed, therefore nothing by mouth after midnight. 3. Chronic deep vein thrombosis (DVT) on the femoral, as well as history of factor V Leiden mutation, Eliquis has been discontinued. She is currently on intravenous heparin. V/Q scan to be performed tomorrow. 4. Type 2 diabetes on consistent carbohydrate diet. Insulin sliding scale during this admission, hold all oral hypoglycemics. Check A1c in the morning. 5. Hypertension. Appears to be controlled. She is continued on her home medications. 6. Dyslipidemia on chronic hydrochlorothiazide. Will discontinue for now. 7. Depression on sertraline and continue on sertraline. 8. Code status. The patient is a full code. 9. Deep vein thrombosis (DVT) prophylaxis, currently on intravenous heparin.
[2019-10-06 23:00] VITALS: BP 101/58
[2019-10-06 23:04] LABS: CK-MB VALUE MASS < 1.0 NG/ML (<3.6); CPK CREATINE PHOSPHOKINASE 100 U/L (26-192); TROPONIN I < 0.02 NG/ML (< 0.10)
[2019-10-06] MEDS: MULTIVITAMINS/MINERALS THERAP 1 TAB PO SCH (23:23)
[2019-10-06] MEDS: GABAPENTIN 300 MG CAP PO SCH (23:23)
[2019-10-06] MEDS: DOCUSATE SODIUM 100 MG CAP PO SCH (23:24)
[2019-10-06] MEDS: PRAVASTATIN 20 MG TAB PO SCH (23:24)
[2019-10-07] VITALS (7 sets, daily range): BP systolic 94–153; BP diastolic 53–77
[2019-10-07] MEDS: PANTOPRAZOLE 40MG INJ (PROTONIX) (C9113) IV SCH ×3 (00:03→20:47)
[2019-10-07 04:16] LABS: HEMATOCRIT 37.5 % (36.0-47.0); MEAN CORPUSCULAR HEMOGLOBIN 31.4 pg (27.0-33.0); MEAN CORPUSCULAR VOLUME 98.2 fl (80.0-96.0); PLATELET COUNT, AUTOMATED 211 10^3/uL (150-450); RED BLOOD COUNT 3.82 10^6/uL (4.00-5.40); WHITE BLOOD COUNT 5.3 10^3/uL (4.0-10.0)
[2019-10-07 04:53] LABS: BLOOD UREA NITROGEN 27 MG/DL (7-18); CALCIUM LEVEL 9.1 MG/DL (8.8-10.2); CARBON DIOXIDE LEVEL 29 MEQ/L (21-32); CHLORIDE LEVEL 107 MEQ/L (98-107); CHOLESTEROL LEVEL 143 MG/DL (<200); CHOLESTEROL RISK RATIO 3.108 (<5); CK-MB VALUE MASS < 1.0 NG/ML (<3.6); CPK CREATINE PHOSPHOKINASE 65 U/L (26-192); CREATININE FOR GFR 1.77 MG/DL (0.55-1.30); GLOMERULAR FILTRATION RATE 30.4 (>45); GLUCOSE, FASTING 104 MG/DL (70-100); HDL CHOLESTEROL 46 MG/DL (>40); LDL CHOLESTEROL 72 MG/DL (<100); MAGNESIUM LEVEL 2.2 MG/DL (1.8-2.4); MB/CK RELATIVE INDEX 1.54 (< OR =4); NON-HDL-C 97 MG/DL; POTASSIUM SERUM 3.7 MEQ/L (3.5-5.1); SODIUM LEVEL 142 MEQ/L (136-145); TRIGLYCERIDES LEVEL 125 MG/DL (<150); TROPONIN I < 0.02 NG/ML (< 0.10)
[2019-10-07 05:03] LABS: HEMOGLOBIN A1c 6.1 %
[2019-10-07] MEDS: LEVOTHYROXINE 50MCG TABLET (0.05MG) PO SCH (06:12)
[2019-10-07] MEDS: HumaLOG INSULIN (NovoLOG) PER UNIT SC SCH ×4 (07:30→21:00)
[2019-10-07] MEDS: GABAPENTIN 300 MG CAP PO SCH ×2 (09:00→20:47)
[2019-10-07] MEDS: DOCUSATE SODIUM 100 MG CAP PO SCH ×2 (09:00→20:48)
[2019-10-07] MEDS ORDERED: E-Z-PAQUE 96% w/w SUSP 176GM BTL As Ordered ONE (10:43)
[2019-10-07] MEDS ORDERED: E-Z-GAS II EFFERVESCENT PACKET (SODIUM BICARB./CITRIC ACID/SIMETHICONE) As Ordered ONE (10:43)
[2019-10-07] MEDS ORDERED: E-Z-HD 98% w/w 340GM SUSP BTL As Ordered ONE (10:44)
[2019-10-07 11:12] LABS: CK-MB VALUE MASS < 1.0 NG/ML (<3.6); CPK CREATINE PHOSPHOKINASE 69 U/L (26-192); MB/CK RELATIVE INDEX 1.45 (< OR =4); TROPONIN I < 0.02 NG/ML (< 0.10)
--- NOTE | 2019-10-07 11:19 | REP ---
V/Q SCAN: Following the intravenous administration of 5.5 millicuries technetium 99m tagged MAA and the inhalation of 1 millicurie technetium 99m DTPA aerosol, multiple images of the lungs are obtained in various projections. Subsegmental matching ventilation perfusion defect is seen in the left upper lobe and another is seen in the left apex. A matching subsegmental ventilation and perfusion defect is also seen in the right apex. No areas of V/Q mismatch are seen. IMPRESSION: Low probability of pulmonary embolism. Electronically Signed by Maninder Amaya MD 10/08/2019 10:30 A
[2019-10-07] MEDS: ASPIRIN 81 MG ENTERIC TAB PO SCH ×2 (15:23→15:30)
[2019-10-07] MEDS: POTASSIUM CHLORIDE 10 MEQ SR TABLET PO SCH (15:30)
[2019-10-07] MEDS: SERTRALINE HCL 50 MG TAB PO SCH (15:30)
[2019-10-07] MEDS: APIXABAN 5 MG TAB (ELIQUIS) PO SCH ×2 (15:48→20:47)
--- NOTE | 2019-10-07 19:10 | IPNPDOC ---
Text Note Date of Service The patient was seen on 10/07/19. NOTE SUBJECTIVE: Left sided chest discomfort has resolved. VQ scan is negative, Had upper GI series pending results. Pateint now remembers that she helped her move some 40 lb bags. PHYSICAL EXAMINATION: Vitals : As below Generally, the patient is awake, alert, oriented times 3. She has resting head tremors. HEENT: Pupils are round and reactive to light and accommodation. Extraocular muscles are intact. Normocephalic atraumatic. Moist mucous membranes. NECK: No jugular venous distension (JVD). No thyromegaly. No cervical lymphadenopathy. The patient has no axillary lymphadenopathy. She has full range of motion in her left and right upper extremities. Lungs are clear to auscultation. No wheezes, rales or rhonchi. Heart: S1, S2, sinus rhythm. No murmurs, rubs or gallops. Abdomen is soft, obese, nontender, nondistended. Positive bowel sounds in four quadrants. No rebound or guarding or thyromegaly. Extremities: The patient has no cyanosis or clubbing. Skin warm and dry and well perfused. Labs and radiology : reviewed. ASSESSMENT AND PLAN: This is a 69-year-old female with history of chronic kidney disease stage III, factor V Leiden mutation, chronic right femoral deep vein thrombosis (DVT), history of saddle embolus, inferior vena cava (IVC) filter placement on chronic Eliquis, dyslipidemia, type 2 diabetes, history of kidney stones, anemia, anxiety, migraines, vertigo, methicillin-resistant Staphylococcus aureus (MRSA), leiomyosarcoma of the right anterior thigh, status post abdominal flap resection, lung nodule biopsy 2015, presents to the emergency room (ER) with two-week history of achiness in left anterior chest g oing down the left arm, accompanied with occasional shortness of breath. The patient was not tachycardiac or tachypneic, was not hypoxic on arrival; but due to a history of saddle embolus, chronic pulmonary emboli (PE) and factor V Leiden despite being compliant with the Eliquis, is being evaluated for possible pulmonary embolism. Due to chronic kidney disease with a creatinine of 1.77, stage III, the patient is unable to get a CT angiogram of the chest to rule out pulmonary embolism. The patient is admitted for two midnights as an inpatient for the following issues: Chest pain, appears to be atypical. possibly musculoskeletal Does have kyphosis and bridging osteophytes in dae anterior aspect of thoracic spine in CT chest. Troponins are negative times 5 times Electrocardiogram (EKG) is unremarkable, does not show any acute ischemic changes at this time. VQ scan low probability for PE. The patient may be resumed back on her home dose of Eliquis Rule out GI causes Due to chronic antiplatelets and anticoagulants, aspirin and apixaban, the patient will also be evaluated for possible peptic ulcer disease, gastritis or esophagitis with an upper GI series in the morning. She has been given Protonix 40 mg IV twice a day, as well as a GI cocktail for comfort. Chronic deep vein thrombosis (DVT) on the femoral, as well as history of factor V Leiden mutation, Eliquis has been discontinued. She is currently on intravenous heparin. V/Q scan to be performed tomorrow. Lung density in CT chest 2 CM by 1.5 CM linear density right upper lung contiguous with the pleura. This may represent scarring. To exclude any possibility of neoplasm the patient should have a followup CT scan in no longer than 4 months. Type 2 diabetes on consistent carbohydrate diet. Insulin sliding scale during this admission, hold all oral hypoglycemics. Check A1c in the morning. Hypertension. Appears to be controlled. She is continued on her home medications. Dyslipidemia on chronic hydrochlorothiazide. Will discontinue for now. Depression on sertraline and continue on sertraline. Code status. The patient is a full code. Deep vein thrombosis (DVT) prophylaxis, currently on intravenous heparin. VS,Fishbone, I+O VS, Fishbone, I+O Laboratory Tests 10/07/19 04:08 Vital Signs Date Time Temp Pulse Resp B/P (MAP) Pulse Ox O2 Delivery O2 Flow Rate FiO2 10/07/19 17:24 98.7 74 18 153/77 (102) 100 Room Air I&O- Last 24 Hours up to 6 AM 10/07/19 06:00 Intake Total 100 ml Output Total 850 ml Balance -750 ml AYSE ROWLAND MD Oct 07, 2019 19:10
[2019-10-07] MEDS: MULTIVITAMINS/MINERALS THERAP 1 TAB PO SCH (20:46)
[2019-10-07] MEDS: PRAVASTATIN 20 MG TAB PO SCH (20:47)
--- NOTE | 2019-10-07 21:42 | ECGEPIP ---
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
--- NOTE | 2019-10-07 21:56 | ECGEPIP ---
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
[2019-10-08 04:00] VITALS: BP 100/64
[2019-10-08 06:00] LABS: HEMATOCRIT 36.3 % (36.0-47.0); HEMOGLOBIN 11.6 g/dl (12.0-15.5); MEAN CORPUSCULAR HEMOGLOBIN 31.9 pg (27.0-33.0); MEAN CORPUSCULAR VOLUME 99.7 fl (80.0-96.0); PLATELET COUNT, AUTOMATED 205 10^3/uL (150-450); RED BLOOD COUNT 3.64 10^6/uL (4.00-5.40); WHITE BLOOD COUNT 5.7 10^3/uL (4.0-10.0)
[2019-10-08 06:11] LABS: CALCIUM LEVEL 8.9 MG/DL (8.8-10.2); CREATININE FOR GFR 1.93 MG/DL (0.55-1.30); GLOMERULAR FILTRATION RATE 27.5 (>45); POTASSIUM SERUM 3.5 MEQ/L (3.5-5.1)
[2019-10-08] MEDS: LEVOTHYROXINE 50MCG TABLET (0.05MG) PO SCH (06:35)
[2019-10-08 08:00] VITALS: BP 114/65
[2019-10-08] MEDS: HumaLOG INSULIN (NovoLOG) PER UNIT SC SCH ×2 (09:22→12:39)
[2019-10-08] MEDS: PANTOPRAZOLE 40MG INJ (PROTONIX) (C9113) IV SCH (09:22)
[2019-10-08] MEDS: ASPIRIN 81 MG ENTERIC TAB PO SCH (09:22)
[2019-10-08] MEDS: POTASSIUM CHLORIDE 10 MEQ SR TABLET PO SCH (09:23)
[2019-10-08] MEDS: GABAPENTIN 300 MG CAP PO SCH (09:23)
[2019-10-08] MEDS: SERTRALINE HCL 50 MG TAB PO SCH (09:23)
[2019-10-08] MEDS: APIXABAN 5 MG TAB (ELIQUIS) PO SCH (09:23)
[2019-10-08] MEDS: DOCUSATE SODIUM 100 MG CAP PO SCH (09:23)
--- NOTE | 2019-10-08 09:50 | REP ---
Upper GI Air Contrast with SBFT The procedure was performed by LUCILLE Shirley, under the the direct supervision of Dr. Bro. The images were reviewed with Dr. Bro. The diabetes clinical manager film shows no organomegaly or pathological masses. The intestinal gas pattern appears normal. There is an IVC filter. There are surgical clips in the right upper quadrant. Liquid barium and gas producing crystals were given in the erect position as well as liquid barium in the prone position in order to perform a double contrast upper GI examination. The oral and pharyngeal stages of deglutition were unremarkable. Esophageal transport is efficient and there is no esophagitis, stricture, or mucosal ring noted. However tertiary contractions were visualized throughout the course of the exam. There is no hiatal hernia. Gastroesophageal reflux was not visualized throughout the course of the exam. The stomach tang are normally outlined. The rugal folds are smooth and regular. There is no gastritis, neoplasm, or ulcer disease noted. The duodenal tang are normally outlined. The mucosal folds are smooth and regular. There is no duodenitis, peptic ulcer disease, or neoplasm noted. The visualized portion of the proximal small bowel appears normal in course and caliber. The barium column was followed through the small bowel to the level of the terminal ileum. Small bowel transit time was approximately 225 minutes. During fluoroscopy gentle palpation shows all loops are freely mobile and pliable. There are no fixed or angulated loops. The small bowel mucosal pattern is normal in course and caliber. There is no transition to set suggest a partial small-bowel obstruction. Spot filming of the terminal ileum shows it to be unremarkable. Impression: 1. Tertiary contractions and otherwise unremarkable upper GI with small bowel follow-through. 1.9 minutes of fluoroscopy time was utilized for this procedure. Some fluoroscopic images are performed with last image hold technology. These images require no additional radiation. Reviewed by LUCILLE Orozco 10/07/2019 04:08 P Electronically Signed by Randolph Bro MD 10/08/2019 09:41 A
--- NOTE | 2019-10-08 13:46 | DS.PDOC ---
Discharge Summary General Date of Admission Oct 06, 2019 at 18:56 Date of Discharge 10/08/19 Discharge Summary PROCEDURES PERFORMED DURING STAY: [None]. DISCHARGE DIAGNOSES: Atypical chest pain musculoskeletal Vs pulmonary hypertension Lung Density in CT chest on the right SECONDARY DIAGNOSIS: Chronic kidney disease stage III, Factor V Leiden mutation, chronic right femoral deep vein thrombosis (DVT), History of Pulmonary emolism with saddle embolus, Pulmonary hypertension, inferior vena cava (IVC) filter placement on chronic Eliquis, dyslipidemia, type 2 diabetes, depression, history of kidney stones, anemia, anxiety, migraines, vertigo, methicillin-resistant Staphylococcus aureus (MRSA), leiomyosarcoma of the right anterior thigh, status post abdominal flap resection, H/o lung nodule with biopsy 2016, COMPLICATIONS/CHIEF COMPLAINT: Chest Pain. HISTORY OF PRESENT ILLNESS: See history and physical HOSPITAL COURSE: Labs and radiology : reviewed. ASSESSMENT AND PLAN: This is a 69-year-old female with history of chronic kidney disease stage III, factor V Leiden mutation, chronic right femoral deep vein thrombosis (DVT), history of saddle embolus, inferior vena cava (IVC) filt er placement on chronic Eliquis, dyslipidemia, type 2 diabetes, history of kidney stones, anemia, anxiety, migraines, vertigo, methicillin-resistant Staphylococcus aureus (MRSA), leiomyosarcoma of the right anterior thigh, status post abdominal flap resection, lung nodule biopsy 2015, presents to the emergency room (ER) with two-week history of achiness in left anterior chest going down the left arm, accompanied with occasional shortness of breath. The patient was not tachycardiac or tachypneic, was not hypoxic on arrival; but due to a history of saddle embolus, chronic pulmonary emboli (PE) and factor V Leiden despite being compliant with the Eliquis, is being evaluated for possible pulmonary embolism. Due to chronic kidney disease with a creatinine of 1.77, stage III, the patient is unable to get a CT angiogram of the chest to rule out pulmonary embolism. The patient is admitted for two midnights as an inpatient for the following issues: Chest pain, appears to be atypical. possibly musculoskeletal Vs pulmary hypertension. Does have kyphosis and bridging osteophytes in dea anterior aspect of thoracic spine in CT chest. Troponins are negative times 5 times Electrocardiogram (EKG) is unremarkable, does not show any acute ischemic changes at this time. VQ scan low probability for PE. The patient may be resumed back on her home dose of Eliquis echo done. Has h/o saddle pulmonary emolism so may have pulmonary hypertension Ruled out GI causes Upper GI series with follow through negative for any hiatal herniaor gastritis or ulcers. Chronic deep vein thrombosis (DVT) on the femoral, as well as history of factor V Leiden mutation, VQ scan negative, restarted on eliquis. Lung density in CT chest 2 CM by 1.5 CM linear density right upper lung contiguous with the pleura. This may represent scarring. To exclude any possibility of neoplasm the patient should have a followup CT scan in no longer than 4 months. Type 2 diabetes on consistent carbohydrate diet. continue home meds. Hypertension. Appears to be controlled. She is continued on her home medications. Dyslipidemia home meds. Depression on sertraline and continue on sertraline. DISCHARGE MEDICATIONS: Please see below. ALLERGIES: Please see below. PHYSICAL EXAMINATION ON DISCHARGE: VITAL SIGNS: Please see below. Generally, the patient is awake, alert, oriented times 3. She has resting head tremors. HEENT: Pupils are round and reactive to light and accommodation. Extraocular muscles are intact. Normocephalic atraumatic. Moist mucous membranes. NECK: No jugular venous distension (JVD). No thyromegaly. No cervical lymphadenopathy. The patient has no axillary lymphadenopathy. She has full range of motion in her left and right upper extremities. Lungs are clear to auscultation. No wheezes, rales or rhonchi. Heart: S1, S2, sinus rhythm. No murmurs, rubs or gallops. Abdomen is soft, obese, nontender, nondistended. Positive bowel sounds in four quadrants. No rebound or guarding or thyromegaly. Extremities: The patient has no cyanosis or clubbing. Skin warm and dry and well perfused. LABORATORY DATA: Please see below. IMAGING: Lung VQ scan : Low probability of pulmonary embolism UPPER GI series: Tertiary contractions and otherwise unremarkable upper GI with small bowel follow-through. CT chest without contrast: 2 CM by 1.5 CM linear density right upper lung contiguous with the pleura. This may represent scarring. To exclude any possibility of neoplasm the patient should have a followup CT scan in no longer than 4 months. ACTIVITY: [As tolerated]. DIET: Carb consistent DISCHARGE PLAN: Home DISPOSITION: . DISCHARGE INSTRUCTIONS: PMD in 1 to 2 weeks ITEMS TO FOLLOWUP ON ON OUTPATIENT: Echo DISCHARGE CONDITION: [Stable]. TIME SPENT ON DISCHARGE: 35 minutes. Vital Signs/I&Os Vital Signs Date Time Temp Pulse Resp B/P (MAP) Pulse Ox O2 Delivery O2 Flow Rate FiO2 10/08/19 08:00 97.2 74 18 114/65 (81) 95 Room Air I&O- Last 24 Hours up to 6 AM 10/08/19 06:00 Intake Total 1225 ml Output Total 300 ml Balance 925 ml Laboratory Data Labs 24H Laboratory Tests 2 10/07/19 15:32: Bedside Glucose (Misc Panel) 95 10/07/19 15:52: Activated Partial Thromboplast Time 44.8H 10/07/19 17:55: Bedside Glucose (Misc Panel) 87 10/07/19 21:01: Bedside Glucose (Misc Panel) 190H 10/08/19 05:25: Nucleated Red Blood Cells % (auto) 0.0, Anion Gap 6L, Glomerular Filtration Rate 27.5L, Calcium Level 8.9 10/08/19 12:17: Bedside Glucose (Misc Panel) 104 CBC/BMP Laboratory Tests 10/08/19 05:25 FSBS Laboratory Tests Test 10/07/19 15:32 10/07/19 17:55 10/07/19 21:01 10/08/19 12:17 Range/Units Bedside Glucose (Misc Panel) 95 87 190 104 80-115 MG/DL Discharge Medications Scheduled Apixaban (Eliquis) 5 Mg Tab, 5 MG PO BID, (Reported) Aspirin (Aspir 81) 81 Mg Tab, 81 MG PO DAILY, (Reported) Cholecalciferol (Vitamin D3) (Vitamin D3) 2,000 Unit Capsule, 2,000 UNIT PO DAILY, (Reported) Docusate Sodium (Colace) 100 Mg Capsule, 100 MG PO BID, (Reported) Dulaglutide (Trulicity) 1.5 Mg/0.5 Ml Pen.injctr, 1.5 MG SC QWEEK, (Reported) THURSDAYS Gabapentin (Gabapentin) 600 Mg Tablet, 600 MG PO BID, (Reported) Glipizide (Glipizide) 5 Mg Tab, 2.5 MG PO BID, (Reported) Hydrochlorothiazide (Hydrochlorothiazide) 12.5 Mg Tab, 12.5 MG PO QHS, (Reported) Levothyroxine Sodium (Synthroid) 50 Mcg Tab, 50 MCG PO DAILY, (Reported) Mirabegron (Myrbetriq) 25 Mg Tab.er.24h, 25 MG PO DAILY, (Reported) Multivitamins (Thera M Plus Tablet) 1 Tab Tab, 1 TAB PO QHS, (Reported) Pioglitazone HCl (Pioglitazone HCl) 15 Mg Tablet, 15 MG PO DAILY, (Reported) Potassium Chloride (Potassium Chloride) 10 Meq Tablet.er, 10 MEQ PO DAILY, (Reported) Pravastatin Sodium (Pravachol) 20 Mg Tab, 20 MG PO QHS, (Reported) Sertraline Hcl (Zoloft) 50 Mg Tab, 50 MG PO DAILY, (Reported) Scheduled PRN Albuterol Sulfate (Ventolin Hfa) 18 Gm Hfa.aer.ad, 2 PUFF INH Q4-6HP PRN for wheezing, (Reported) Meclizine HCl (Meclizine HCl) 25 Mg Tab, 25 MG PO PRN PRN for DIZZINESS, (Reported) Melatonin/Pyridoxine (Melatonin 5 mg Tablet) 1 Each Tablet, 5 MG PO QHS PRN for SLEEP, (Reported) Senna (Senna Lax) 8.6 Mg Tablet, 2 TAB PO PRN PRN for CONSTIPATION, (Reported) Allergies Coded Allergies: iodine (Verified Allergy, Intermediate, RADIOACTIVE IODINE, RASH, 04/30/19) meprobamate (Verified Adverse Reaction, Intermediate, Hallucinations, 10/06/19) aspirin (Verified Adverse Reaction, Mild, Hallucinations, 10/06/19) morphine (Verified Adverse Reaction, Mild, N/V, 10/06/19) pentazocine (Verified Adverse Reaction, Mild, N/V, 10/06/19) sumatriptan (Verified Adverse Reaction, Mild, vomitting, 10/06/19) AYSE ROWLAND MD Oct 08, 2019 13:46
--- NOTE | 2019-10-08 16:04 | ECHO ---
DATE OF PROCEDURE: 10/08/2019 AGE: 69 GENDER: Female HEIGHT: 163 cm WEIGHT: 74 kg BODY SURFACE AREA: 1.8 m2 PATIENT LOCATION: Inpatient, PCU, room 3214 REFERRING PHYSICIAN: Lexie Hernandez MD INDICATION: Chest pain. 2-D MEASUREMENTS: RV: 3.8 cm LV: 4.5 cm Septum: 0.9 cm Posterior wall: 0.9 cm Aortic root: 2.7 cm LA: 2.9 cm LVEF: 70% DOPPLER MEASUREMENTS: AV: 1.3 m/s LVOT: 0.91 m/s LVOT diameter: 1.7 cm MV-E: 65, A: 76, EA ratio: 0.9 Early mitral deceleration time: 208 ms E prime medial: 8.5, A prime medial: 11.3, E prime lateral: 10.4 Average E/E prime ratio: 6.9 PCWP: 10.4 mmHg PV: 0.7 m/s Pulmonary artery acceleration time: 127 ms PASP: 22 mmHg IVC: 1.7 cm COMMENTS Normal sinus rhythm without intraventricular conduction disturbance. Slightly technically challenging in light of the patient's body habitus but diagnostically useful information was still obtained. Normal left ventricular size, wall thickness and hyperkinetic wall motion. Normal left atrial size with grade 1 LV diastolic dysfunction but currently normal estimated mean left atrial pressure. Normal right heart chamber sizes and motion and estimated pulmonary arterial pressure. Normal IVC size and collapse against an elevated central venous pressure. Normal aortic dimensions. Normal appearing and functioning valvular structures. No apparent intracardiac mass or pericardial effusion.
== END 2019-10-08 14:42 | disposition home or self-care (01) | DRG 313 ==
LOC: M ED 09:08 → M ED INP 18:56 → M PCU 10-07 17:17
PROVIDERS: ADMIT General Practice; ATTEND Internal Medicine Nephrology
DX: R07.89 Other chest pain (principal); D68.51 Activated protein C resistance; I27.20 Pulmonary hypertension, unspecified; N18.3 Chronic kidney disease, stage 3 (moderate); E78.5 Hyperlipidemia, unspecified; E11.40 Type 2 diabetes mellitus with diabetic neuropathy, unspecified; F32.9 Major depressive disorder, single episode, unspecified; G43.909 Migraine, unspecified, not intractable, without status migrainosus; Z86.711 Personal history of pulmonary embolism; Z79.01 Long term (current) use of anticoagulants; D64.9 Anemia, unspecified; F41.9 Anxiety disorder, unspecified; I12.9 Hypertensive chronic kidney disease with stage 1 through stage 4 chronic kidney disease, or unspecified chronic kidney disease; R91.8 Other nonspecific abnormal finding of lung field; Z79.899 Other long term (current) drug therapy; Z79.82 Long term (current) use of aspirin; Z88.6 Allergy status to analgesic agent; Z88.5 Allergy status to narcotic agent; Z88.8 Allergy status to other drugs, medicaments and biological substances; Z86.718 Personal history of other venous thrombosis and embolism; Z87.442 Personal history of urinary calculi; E55.9 Vitamin D deficiency, unspecified

== ENCOUNTER → 2019-12-29 | Outpatient (REF) | payer MEDICARE ==
[~2019-12-29] MED LIST changes: +GABA600T4 PO; -MECL-68 PO; +MECL1TAB31 PO; +MELATAB7 PO; +POTA1TAB23 PO; +VENTAER INH
== END ==
LOC: M SMT 17:15
PROVIDERS: ATTEND Urology
DX: N39.0 Urinary tract infection, site not specified (principal)

== ENCOUNTER → 2020-01-20 | Outpatient (CLI) | payer MEDICARE ==
--- NOTE | 2020-01-20 10:24 | REPPI ---
KUB ABDOMEN AND PELVIS: KUB film of abdomen and pelvis performed. Bowel gas pattern is normal with no obstruction. Calcification overlying the upper pole of the left kidney measures about 7 mm in diameter. Somewhat curvilinear calcification overlying the mid left renal shadow is of uncertain significance and may be vascular. Lobulated calcification overlies the lower pole of the left renal shadow and measures 6 mm. There appears to be a 1.1 cm calculus in the region of the left renal pelvis. No definite abnormal calcifications overlie the right renal shadow. There are multiple phleboliths in the pelvis. IVC filter is noted with the superior tip at the level of the superior aspect of L2. Metallic clips are seen in the right upper quadrant. There are degenerative changes of the spine. IMPRESSION: Multiple left renal calculi. There appears to be a 1.1 cm calculus in the region of the left renal pelvis. Electronically Signed by Maninder Amaya MD 01/20/2020 07:52 P
== END ==
LOC: M PLAIMG 09:17
PROVIDERS: ATTEND Urology
DX: N20.0 Calculus of kidney (principal)
CPT/HCPCS: 74018; G0463

== ENCOUNTER 2020-04-01 09:59 | Outpatient (RCR) | payer MEDICARE | END 2020-04-18 | LOC: M PT 09:59 | PROVIDERS: ATTEND Surgery | DX: I89.0 Lymphedema, not elsewhere classified (principal) ==

== ENCOUNTER → 2020-09-07 | Outpatient (REF) | payer MEDICARE ==
[~2020-09-07] MED LIST changes: -ASPI81TA85 PO; +ASPI81TA86 PO; -METF-699 PO; +METF-817 PO
[2020-09-07 18:24] LABS: BACTERIA, URINE AUTO 1+ (NEGATIVE); MUCUS, URINE SMALL (NEGATIVE); RBC, URINE AUTO 3 /HPF (0-3); SQUAMOUS EPITHELIAL CELL UR AU 10 /HPF (0-6); TRANSITIONAL EPITHELIAL AUTO 1 /HPF; WBC, URINE AUTO 23 /HPF (0-3)
== END ==
LOC: M LAB REF 17:01
PROVIDERS: ATTEND Internal Medicine Nephrology
DX: R31.29 Other microscopic hematuria (principal)

== ENCOUNTER 2020-09-09 13:27 | Outpatient (RCR) | payer MEDICARE | END 2020-09-18 | LOC: M PT 13:27 | PROVIDERS: ATTEND Surgery | DX: I89.0 Lymphedema, not elsewhere classified (principal) ==

== ENCOUNTER → 2021-01-20 | Outpatient (CLI) | payer MEDICARE ==
[~2021-01-20] MED LIST changes: +GABA-282 PO; -GABA-843 PO
--- NOTE | 2021-01-20 12:10 | REP ---
INDICATION: CALCULUS OF KIDNEY COMPARISON: 01/20/2020 TECHNIQUE: Supine view of the abdomen and pelvis. FINDINGS: Bilateral intrarenal calculi are identified measuring up to 11.5 mm right kidney and 11.5 mm left kidney. Evidence for prior cholecystectomy. Bowel gas pattern is nonspecific. IVC filter noted. Calcifications in the pelvis are stable and consistent with phleboliths. IMPRESSION: Bilateral nephrolithiasis <Electronically signed by Dileep Bruce > 01/20/21 [id number]
== END ==
LOC: M RAD 11:45
PROVIDERS: ATTEND Urology
DX: N20.0 Calculus of kidney (principal); Z90.49 Acquired absence of other specified parts of digestive tract
CPT/HCPCS: 74018; G0463

== ENCOUNTER → 2021-02-04 | Outpatient (CLI) | payer MEDICARE ==
--- NOTE | 2021-02-04 09:49 | REP ---
INDICATION: KIDNEY STONE. COMPARISON: Abdomen/pelvis CT dated 05/20/2019 and plain film of the abdomen dated 01/20/2021. TECHNIQUE: Abdomen/pelvis CT without IV contrast. FINDINGS: Patient has a history of renal calculi. There are 2 tiny right renal calculi, 1 in the lower pole measuring 2 mm and the other in the lower pole measuring 2 mm. There is a collection of contiguous calcifications in the left renal upper pole all measuring approximately 5 mm in diameter. In total this collection of calcifications maximally measures 14 mm. Additionally, there is a 3 mm calculus at the midpole, a 9 mm calculus at the lower pole, and a 11 mm calculus at the lower pole. 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 No ureteral calcifications are identified otherwise. There is no hydronephrosis or perinephric stranding on the right or the left, otherwise. A Roldan filter is incidentally identified in the vena cava, unchanged. The visualized lung dawson are unremarkable. The unenhanced hepatic parenchyma is unremarkable. There are surgical clips in the gallbladder fossa. The pancreas, spleen and adrenals are unremarkable. The bowel and mesentery are unremarkable. The abdominal aorta is unremarkable except for occasional calcified atheroma. Pelvis: The pelvic bowel loops are unremarkable. There is no ascites or adenopathy. There is a hysterectomy. The vaginal cuff and adnexa are unremarkable. The bladder is unremarkable. There are numerous pelvic phleboliths as previously. Patient reportedly has an appendectomy. IMPRESSION: There are nonobstructive renal calculi bilaterally as described. 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 There is no hydronephrosis otherwise. There is no perinephric stranding or perinephric collection on the right on the left. There is a Roldan filter, unchanged. There are multiple pelvic phleboliths, as previously. <Electronically signed by Maninder Stanford > 02/04/21 [id number]
== END ==
LOC: M RAD 08:57
PROVIDERS: ATTEND Urology
DX: N20.0 Calculus of kidney (principal)

== ENCOUNTER → 2021-03-08 | Outpatient (REF) | payer MEDICARE ==
[~2021-03-08] MED LIST changes: +ASPI81CH31 PO; +D31000TA2 PO; +PRAV20TA2 PO
[2021-03-08 14:16] LABS: APPEARANCE, URINE CLEAR (CLEAR); BACTERIA, URINE AUTO NEGATIVE (NEGATIVE); BILIRUBIN, URINE AUTO NEGATIVE (NEGATIVE); BLOOD, URINE BLOOD NEGATIVE (NEGATIVE); COLOR, URINE YELLOW (YELLOW); GLUCOSE, URINE (UA) AUTO NEGATIVE (NEGATIVE); KETONE, URINE AUTO NEGATIVE (NEGATIVE); LEUKOCYTE ESTERASE, URINE AUTO 1+ (NEGATIVE); MUCUS, URINE SMALL (NEGATIVE); NITRITE, URINE AUTO NEGATIVE (NEGATIVE); PROTEIN, URINE AUTO NEGATIVE (NEGATIVE); RBC, URINE AUTO 2 /HPF (0-3); SPECIFIC GRAVITY URINE AUTO 1.013 (1.002-1.035); SQUAMOUS EPITHELIAL CELL UR AU 2 /HPF (0-6); UROBILINOGEN, URINE AUTO 0.2 mg/dL (0.0-2.0); WBC, URINE AUTO 8 /HPF (0-3)
== END ==
LOC: M LAB REF 11:28
PROVIDERS: ATTEND Family Medicine
DX: Z01.818 Encounter for other preprocedural examination (principal); N20.0 Calculus of kidney; N39.0 Urinary tract infection, site not specified

== ENCOUNTER → 2021-03-09 | Outpatient (CLI) | payer MEDICARE | LOC: M LABSMTC 11:29 | PROVIDERS: ATTEND Anesthesiology | DX: Z01.82 Encounter for allergy testing (principal); Z20.828 Contact with and (suspected) exposure to other viral communicable diseases ==

== ENCOUNTER 2021-03-10 09:59 | Outpatient (RCR) | payer MEDICARE | END 2021-03-18 | LOC: M PT 09:59 | PROVIDERS: ATTEND Family Medicine | DX: I89.0 Lymphedema, not elsewhere classified (principal) ==

== ENCOUNTER 2021-03-14 06:17 | Day surgery (SDC) | payer MEDICARE ==
[~2021-03-14] VITALS: Ht 162.6 cm; Wt 74.8 kg
[~2021-03-14 06:17] MED LIST changes: +LR 1,000 ML IV ONE; +ceFAZolin SOD 2 GM in IV 1 EA IV ONE
[2021-03-14] MEDS ORDERED: CONRAY-60 60% 50ML VIAL (Q9961) As Ordered ONE (07:15)
[2021-03-14] MEDS ORDERED: MIDAZOLAM INJ 2MG/2ML VIAL (J2250 PER 1MG) As Ordered ONE (07:19)
[2021-03-14] MEDS ORDERED: fentaNYL 100 MCG/2 ML INJECTION (J3010) As Ordered ONE (07:19)
[2021-03-14] MEDS ORDERED: LIDOCAINE 2% 100MG/5ML SDV (FOR ANES.) As Ordered ONE (07:19)
[2021-03-14] MEDS ORDERED: propofoL 200 MG/20 ML VIAL As Ordered ONE (07:19)
[2021-03-14] MEDS ORDERED: dexameTHASONE 4 MG/ML 1ML VIAL (J1100 PER 1MG) As Ordered ONE (07:19)
[2021-03-14] MEDS ORDERED: ONDANSETRON 4MG/2ML VIAL As Ordered ONE (07:19)
[2021-03-14] MEDS ORDERED: ROCURONIUM BROMIDE 50 MG/5 ML VIAL As Ordered ONE (07:40)
[2021-03-14] MEDS ORDERED: PHENYLephrine 500MCG 5ML (100MCG/ML) SYRINGE As Ordered ONE (08:06)
[2021-03-14] MEDS ORDERED: LACRILUBE (AKWA TEARS) OPHTH OINT 3.5 GM As Ordered ONE (08:15)
[2021-03-14] MEDS ORDERED: SUGAMMADEX SODIUM 500 MG/5 ML VIAL (BRIDION) As Ordered ONE (09:12)
--- NOTE | 2021-03-14 10:17 | REP ---
INDICATION: LEFT STENT PLACEMENT. COMPARISON: Comparison CT study February 04, 2021.. TECHNIQUE: Five views. 36 seconds of fluoroscopy time is reported peer FINDINGS: . A sequence of 5 last image hold fluoroscopically obtained spot radiographs of the abdomen document left ureteral cannulation and double-pigtail stent placement. 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 A vena cava filter and azo gastric tube are also seen. IMPRESSION: Procedural imaging. <Electronically signed by Jarek Bro > 03/14/21 [id number]
[2021-03-14] MEDS ORDERED: HYDROMORPHONE HCL 0.5 MG/ 0.5 ML SYRINGE (J1170 PER 1) IV PRN (10:40)
[2021-03-14] MEDS ORDERED: LR 1,000 ML IV SCH (10:40)
[2021-03-14] MEDS ORDERED: METOCLOPRAMIDE INJ 10MG/2ML VIAL (J2765 PER 1) IV PRN (10:40)
[2021-03-14] MEDS ORDERED: ONDANSETRON 4MG/2ML VIAL IV PRN (10:40)
[2021-03-14] MEDS ORDERED: fentaNYL 100 MCG/2 ML INJECTION (J3010) IV PRN (10:40)
[2021-03-14] MEDS ORDERED: oxyCODONE 5MG TAB PO PRN (10:40)
[2021-03-14] MEDS ORDERED: PERCOCET 5MG/325MG TAB PO PRN (10:45)
--- NOTE | 2021-03-14 11:05 | RO ---
OPERATIVE NOTE DATE OF OPERATION: 03/14/2021 PREOPERATIVE DIAGNOSIS: Left kidney stones. POSTOPERATIVE DIAGNOSIS: Left kidney stones, completely duplicated left collecting system. PROCEDURE: Cystoscopy, left ureteroscopy with laser lithotripsy and basket extraction of stones, left retrograde pyelogram with intraop interpretation of images, left ureteral stent placement. SURGEON: Jr Plascencia MD STEEL FABRICATOR: None. ANESTHESIA: General. OPERATIVE INDICATIONS: This is a 71-year-old female who was found to have several left-sided kidney stones measuring up to 1 cm in size. She was brought to the operating room today for treatment. DESCRIPTION OF PROCEDURE: The patient was brought to the operating room and general anesthesia was induced. Prophylactic antibiotics were infused. She was placed in dorsal lithotomy position and prepped and draped in usual sterile fashion. A rigid cystoscope was inserted in the urethral meatus and advanced into the bladder. A guidewire was then advanced up the left collecting system. I then advanced a ureteral access sheath up the left collecting system. I went up the access sheath with a flexible ureteroscope and examined the left kidney thoroughly. Of note, on fluoroscopy there appeared to be three kidney stones measuring around 1 cm in size. When I examined the left kidney I was only able to identify two kidney stones. At this point it became clear that the patient likely had duplicated left collecting system and the other stone was in the upper pole moiety. At this point the two large kidney stones identified were fragmented into smaller pieces using an Excalibur laser fiber. All the fragments were removed with basket. Once satisfied all stone fragments were removed a retrograde pyelogram was performed and was notable for mild to moderate left hydronephrosis and this also confirmed that the other stone seen in the upper part of the abdomen was indeed in a different moiety. At this point I withdrew the ureteroscope along with the access sheath and then utilized the guidewire to advance a 6-Uzbek x 22-32 cm JJ ureteral stent up into the collecting system of the lower pole moiety. The wire was removed and there were adequate curls of the stent in the renal pelvis of the lower pole moiety and in the bladder. At this point I examined the bladder and identified the ureteral orifice that corresponded with the upper pole moiety. This ureteral orifice was more medial and distal. The guidewire was advanced up this orifice up the left collecting system into the upper pole moiety. I advanced the ureteral access sheath over the wire. I went up the acces sheath with the flexible ureteroscope and within the renal pelvis of the upper pole moiety an approximately 1 cm stone was seen. This stone was fragmented into smaller pieces and then all the fragments were removed using a basket. Once satisfied all the fragments were removed a retrograde pyelogram was performed and was notable for mild left hydronephrosis in the upper pole moiety. I then withdrew the ureteroscope along with the access sheath and no additional stones were seen inside the ureter. I utilized the guidewire to advance another 6-Uzbek x 22-32 cm JJ ureteral stent into the collecting system of the upper pole moiety. The wire was removed and there were adequate curls of the stent in the renal pelvis of the upper pole moiety and in the bladder. At this point the bladder was emptied of all fluids and this marked the conclusion of the procedure. The patient was taken out of the dorsal lithotomy position, awakened from anesthesia and transported to the recovery room in stable condition. ESTIMATED BLOOD LOSS: 5 mL. COMPLICATIONS: None. SPECIMEN: Kidney stone fragments. PLAN: The patient will follow up in urology clinic in a few weeks to remove both of her left-sided stents. RYAN
[2021-03-14 13:20] VITALS: BP 133/67
== END 2021-03-14 13:20 | disposition home or self-care (01) ==
LOC: M SDC 06:17
PROVIDERS: ATTEND Urology
DX: N20.0 Calculus of kidney (principal); E11.9 Type 2 diabetes mellitus without complications; I10 Essential (primary) hypertension; E78.49 Other hyperlipidemia; E03.9 Hypothyroidism, unspecified; G43.909 Migraine, unspecified, not intractable, without status migrainosus; F41.9 Anxiety disorder, unspecified; Z86.711 Personal history of pulmonary embolism; Z79.82 Long term (current) use of aspirin; Z79.84 Long term (current) use of oral hypoglycemic drugs; Z91.041 Radiographic dye allergy status; Z88.5 Allergy status to narcotic agent; Z88.8 Allergy status to other drugs, medicaments and biological substances; Z79.01 Long term (current) use of anticoagulants; Z92.3 Personal history of irradiation
CPT/HCPCS: 52356; 74420; 82365; 88300; C1769; C1894; C2617; J0690; J1100; J2250; J2370; J2405; J3010; Q9961

== ENCOUNTER → 2021-03-17 | Outpatient (REF) | payer MEDICARE ==
[~2021-03-17] MED LIST changes: -LR 1,000 ML IV ONE; -ceFAZolin SOD 2 GM in IV 1 EA IV ONE
[2021-03-17 15:41] LABS: APPEARANCE, URINE MANUAL CLOUDY (CLEAR); BILIRUBIN, URINE MANUAL NEGATIVE (NEGATIVE); BLOOD URINE MANUAL POSITIVE (NEGATIVE); COLOR, URINE MANUAL RED (YELLOW); GLUCOSE, URINE (UA) MANUAL NEGATIVE (NEGATIVE); KETONE, URINE MANUAL NEGATIVE (NEGATIVE); LEUKOCYTE ESTERASE, URINE MAN POSITIVE (NEGATIVE); NITRITE, URINE MANUAL NEGATIVE (NEGATIVE); PROTEIN, URINE MANUAL 3+ mg/dL (NEGATIVE); SPECIFIC GRAVITY,URINE MANUAL 1.015 (1.002-1.035); UROBILINOGEN, URINE MANUAL NORMAL (NORMAL)
[2021-03-17 16:18] LABS: RBC, URINE TNTC /hpf (0-3); SQUAMOUS EPITHELIAL CELL URINE SMALL AMOUNT /hpf (SMALL AMT); TRANSITIONAL EPI CELLS, URINE SMALL AMOUNT /hpf; WBC, URINE 20-30 /hpf (0-3)
[2021-03-17 16:19] LABS: BACTERIA, URINE MOD AMOUNT
== END ==
LOC: M SMT 14:57
PROVIDERS: ATTEND Nurse Practitioner Women's Health
DX: R30.0 Dysuria (principal)

== ENCOUNTER → 2021-05-13 | Outpatient (REF) | payer MEDICARE | LOC: M SMT 16:46 | PROVIDERS: ATTEND Urology | DX: R31.9 Hematuria, unspecified (principal) ==

== ENCOUNTER → 2021-08-02 | Outpatient (CLI) | payer MEDICARE ==
--- NOTE | 2021-08-03 08:13 | REPVR ---
PROCEDURE INFORMATION: Exam: CT Head Without Contrast Exam date and time: 08/02/2021 1:22 PM Age: 71 years old Clinical indication: Pain; Headache not specified; Additional info: Caraballo- HX leiomylo sarcoma 5 yrs ago TECHNIQUE: Imaging protocol: Computed tomography of the head without contrast. Radiation optimization: All CT scans at this facility use at least one of these dose optimization techniques: automated exposure control; mA and/or kV adjustment per patient size (includes targeted exams where dose is matched to clinical indication); or iterative reconstruction. COMPARISON: CT Head without contrast 05/04/2015 11:01 AM FINDINGS: Brain: There is mild ill-defined patchy hypodensity within the bilateral cerebral periventricular white matter, consistent with chronic microvascular ischemic changes. There is mild diffuse cerebral atrophy present, consistent with this patient's age. Cerebral ventricles: The ventricular system demonstrates mild diffuse compensatory enlargement. Paranasal sinuses: Visualized sinuses are unremarkable. No fluid levels. Mastoid air cells: Visualized mastoid air cells are well aerated. Bones/joints: Unremarkable. No acute fracture. Soft tissues: Unremarkable. IMPRESSION: 1. No acute infarction, masses or hemorrhage is seen. No acute intracranial abnormality is identified. 2. Diffuse age-related cerebral atrophy and mild chronic microvascular white matter ischemic changes. Electronically signed by: Sree Sahni On 08/03/2021 08:12:56 AM
== END ==
LOC: M PLAIMG 12:22
PROVIDERS: ATTEND Family Medicine
DX: R51.9 Headache, unspecified (principal); R90.82 White matter disease, unspecified; G31.9 Degenerative disease of nervous system, unspecified

== ENCOUNTER 2021-09-08 10:12 | Outpatient (RCR) | payer MEDICARE | END 2021-09-18 | LOC: M PT 10:12 | PROVIDERS: ATTEND Family Medicine | DX: I89.0 Lymphedema, not elsewhere classified (principal) ==

== ENCOUNTER → 2021-09-12 | Outpatient (REF) | payer MEDICARE ==
[2021-09-12 13:47] LABS: BACTERIA, URINE AUTO NEGATIVE (NEGATIVE); RBC, URINE AUTO 21 /HPF (0-3); SQUAMOUS EPITHELIAL CELL UR AU 19 /HPF (0-6); WBC, URINE AUTO TNTC /HPF (0-3)
[2021-09-12 14:46] LABS: TOTAL PROTEIN,RANDOM URINE 115.7 MG/DL (0.0-12.0)
== END ==
LOC: M LAB REF 13:02
PROVIDERS: ATTEND Internal Medicine Nephrology
DX: R31.29 Other microscopic hematuria (principal); N18.4 Chronic kidney disease, stage 4 (severe); N18.32 Chronic kidney disease, stage 3b; E83.42 Hypomagnesemia

== ENCOUNTER → 2021-09-30 | Outpatient (CLI) | payer MEDICARE ==
--- NOTE | 2021-09-30 13:05 | REP ---
INDICATION: CALCULUS OF KIDNEY. COMPARISON: 01/20/2021 the latest prior FINDINGS: KUB shows the intestinal gas pattern to be nonspecific. The organ silhouettes insofar as delineated are unremarkable. There is no evidence of free intraperitoneal air. The calcifications seen superimposed over the left nephric silhouette on the prior exam are no longer visible. There is an unchanged calcification superimposed over the right nephric silhouette. There are numerous bilateral pelvic calcifications which do not appear to be significantly changed. These are too numerous to individually assess.. The tip of the inferior vena cava filter remains at the level of the right pedicle of L2. IMPRESSION: As above <Electronically signed by Kory Jackson > 09/30/21 [id number]
== END ==
LOC: M PLAIMG 11:33
PROVIDERS: ATTEND Urology
DX: N20.0 Calculus of kidney (principal)
CPT/HCPCS: 51798; 74018; 81001; 87086; G0463

== ENCOUNTER → 2021-09-30 | Outpatient (REF) | payer MEDICARE ==
[2021-09-30 13:01] LABS: APPEARANCE, URINE CLOUDY (CLEAR); BACTERIA, URINE AUTO 1+ (NEGATIVE); BILIRUBIN, URINE AUTO NEGATIVE (NEGATIVE); BLOOD, URINE BLOOD 3+ (NEGATIVE); COLOR, URINE YELLOW (YELLOW); GLUCOSE, URINE (UA) AUTO 2+ mg/dL (NEGATIVE); KETONE, URINE AUTO NEGATIVE (NEGATIVE); LEUKOCYTE ESTERASE, URINE AUTO 3+ (NEGATIVE); MUCUS, URINE SMALL (NEGATIVE); NITRITE, URINE AUTO NEGATIVE (NEGATIVE); PROTEIN, URINE AUTO 1+ mg/dL (NEGATIVE); RBC, URINE AUTO 126 /HPF (0-3); SPECIFIC GRAVITY URINE AUTO 1.015 (1.002-1.035); SQUAMOUS EPITHELIAL CELL UR AU 7 /HPF (0-6); UROBILINOGEN, URINE AUTO 0.2 mg/dL (0.0-2.0); WBC, URINE AUTO 141 /HPF (0-3)
== END ==
LOC: M SMT 12:43
PROVIDERS: ATTEND Nurse Practitioner Women's Health
DX: N20.0 Calculus of kidney (principal)

== ENCOUNTER → 2021-12-21 | Outpatient (CLI) | payer MEDICARE | LOC: M WHC 13:52 | PROVIDERS: ATTEND Family Medicine | DX: Z12.31 Encounter for screening mammogram for malignant neoplasm of breast (principal); Z80.3 Family history of malignant neoplasm of breast ==

== ENCOUNTER → 2022-01-06 | Outpatient (CLI) | payer MEDICARE | LOC: M WUC 09:44 | PROVIDERS: ATTEND Internal Medicine | DX: R06.00 Dyspnea, unspecified (principal); R10.13 Epigastric pain; Z95.828 Presence of other vascular implants and grafts; I87.8 Other specified disorders of veins ==

== ENCOUNTER → 2022-01-19 | Outpatient (CLI) | payer MEDICARE ==
[~2022-01-19] MED LIST changes: -D31000TA2 PO; +VITA100093 PO
== END ==
LOC: M RAD 08:50
PROVIDERS: ATTEND Internal Medicine
DX: R10.13 Epigastric pain (principal)

== ENCOUNTER → 2022-01-26 | Outpatient (CLI) | payer MEDICARE ==
[~2022-01-26] MED LIST changes: +READI-CAT 2 As Ordered ONE
== END ==
LOC: M RAD 09:49
PROVIDERS: ATTEND Internal Medicine
DX: R10.13 Epigastric pain (principal); I70.0 Atherosclerosis of aorta; N13.30 Unspecified hydronephrosis; N20.1 Calculus of ureter

== ENCOUNTER 2022-02-09 18:22 | Emergency (ER) | payer MEDICARE ==
[~2022-02-09] VITALS: Ht 162.6 cm; Wt 74.0 kg
[~2022-02-09 18:22] MED LIST changes: -READI-CAT 2 As Ordered ONE
[2022-02-09] MEDS ORDERED: LEVO50TA5 (18:32)
[2022-02-09] MEDS ORDERED: MORPHINE 2 MG/ML 1ML VIAL (J2270) IV ONE (20:05)
[2022-02-09] MEDS ORDERED: ONDANSETRON 4MG/2ML VIAL IV ONE (20:05)
[2022-02-09 20:25] LABS: BASO % 0.1 % (0.0-1.0); EOS % 0.3 % (0.0-3.0); HEMATOCRIT 41.2 % (36.0-47.0); HEMOGLOBIN 13.6 g/dl (12.0-15.5); LYMPH # 0.6 10^3/uL (1.5-5.0); LYMPH % 7.6 % (24.0-44.0); MEAN CORPUSCULAR HEMOGLOBIN 31.9 pg (27.0-33.0); MEAN CORPUSCULAR VOLUME 96.7 fl (80.0-96.0); MONO # 0.5 10^3/uL (0.0-0.8); MONO % 6.3 % (2.0-8.0); NEUTROPHILS # 6.5 10^3/uL (1.5-8.5); NEUTROPHILS % 85.4 % (36.0-66.0); PLATELET COUNT, AUTOMATED 241 10^3/uL (150-450); RED BLOOD COUNT 4.26 10^6/uL (4.00-5.40); WHITE BLOOD COUNT 7.6 10^3/uL (4.0-10.0)
[2022-02-09 20:38] LABS: ALBUMIN 3.6 GM/DL (3.2-5.2); BILIRUBIN,DIRECT 0.1 MG/DL (0.0-0.2); BILIRUBIN,TOTAL 0.3 MG/DL (0.2-1.0); CALCIUM LEVEL 8.9 MG/DL (8.8-10.2); CREATININE FOR GFR 1.94 MG/DL (0.55-1.30); GLOMERULAR FILTRATION RATE 27.2 (>39); POTASSIUM SERUM 3.7 MEQ/L (3.5-5.1); TOTAL PROTEIN 7.3 GM/DL (6.4-8.2)
[2022-02-09] MEDS ORDERED: NS 1,000 ML IV ONE (20:55)
[2022-02-09] MEDS ORDERED: TAMSULOSIN 0.4 MG CAP PO ONE (23:15)
[2022-02-09] MEDS ORDERED: NORCO 5/325MG TABLET (BULK FOR ED) PO ONE (23:15)
[2022-02-09] MEDS ORDERED: CEFDINIR 300 MG CAP (OMNICEF) PO ONE (23:15)
[2022-02-09] MEDS ORDERED: ONDANSETRON 4 MG ORAL DISINTEGRATING TAB PO ONE (23:15)
[2022-02-09] MEDS ORDERED: HYDR-3713 PO (23:29)
[2022-02-09] MEDS ORDERED: ONDA4TAB6 PO (23:29)
[2022-02-09] MEDS ORDERED: FLOM0.4C39 PO (23:29)
[2022-02-09] MEDS ORDERED: CEFD300C PO (23:29)
[2022-02-09 23:30] VITALS: BP 112/62
== END 2022-02-09 23:30 | disposition home or self-care (01) ==
LOC: M ED 18:22
DX: K59.00 Constipation, unspecified (principal); N21.1 Calculus in urethra; E11.9 Type 2 diabetes mellitus without complications; I10 Essential (primary) hypertension; E78.5 Hyperlipidemia, unspecified; K21.9 Gastro-esophageal reflux disease without esophagitis; K57.92 Diverticulitis of intestine, part unspecified, without perforation or abscess without bleeding; Z86.711 Personal history of pulmonary embolism; Z86.718 Personal history of other venous thrombosis and embolism; Z95.828 Presence of other vascular implants and grafts; Z79.82 Long term (current) use of aspirin; Z79.02 Long term (current) use of antithrombotics/antiplatelets; Z79.899 Other long term (current) drug therapy; Z79.84 Long term (current) use of oral hypoglycemic drugs; Z91.89 Other specified personal risk factors, not elsewhere classified; Z88.5 Allergy status to narcotic agent; Z88.8 Allergy status to other drugs, medicaments and biological substances
CPT/HCPCS: 74176; 80048; 80076; 81001; 83690; 85025; 87086; 93041; 96374; 96375; 99285; J2270; J2405; Q0162

== ENCOUNTER → 2022-04-03 | Outpatient (CLI) | payer MEDICARE ==
[~2022-04-03] MED LIST changes: +CEFD300C PO; +FLOM0.4C39 PO; +HYDR-3713 PO; +LEVO50TA5; +ONDA4TAB6 PO
[2022-04-03 15:49] LABS: HEMATOCRIT 40.4 % (36.0-47.0); MEAN CORPUSCULAR HEMOGLOBIN 32.1 pg (27.0-33.0); MEAN CORPUSCULAR HGB CONC 32.2 g/dl (32.0-36.5); MEAN CORPUSCULAR VOLUME 99.8 fl (80.0-96.0); PLATELET COUNT, AUTOMATED 258 10^3/uL (150-450); RED BLOOD COUNT 4.05 10^6/uL (4.00-5.40); WHITE BLOOD COUNT 6.3 10^3/uL (4.0-10.0)
[2022-04-03 16:08] LABS: CREATININE FOR GFR 2.2 MG/DL (0.55-1.30); GLOMERULAR FILTRATION RATE 23.4 (>39); POTASSIUM SERUM 3.5 MEQ/L (3.5-5.1)
[2022-04-03 16:09] LABS: CALCIUM LEVEL 9.7 MG/DL (8.8-10.2)
== END ==
LOC: M PLALAB 13:15
PROVIDERS: ATTEND Urology
DX: Z01.818 Encounter for other preprocedural examination (principal); N13.2 Hydronephrosis with renal and ureteral calculous obstruction

== ENCOUNTER → 2022-04-10 | Outpatient (CLI) | payer MEDICARE | LOC: M PLALAB 14:20 | PROVIDERS: ATTEND Urology | DX: Z01.818 Encounter for other preprocedural examination (principal); N13.2 Hydronephrosis with renal and ureteral calculous obstruction; N39.0 Urinary tract infection, site not specified ==

== ENCOUNTER → 2022-04-14 | Outpatient (CLI) | payer MEDICARE | LOC: M LABSMTC 10:52 | PROVIDERS: ATTEND Anesthesiology | DX: Z01.812 Encounter for preprocedural laboratory examination (principal); Z20.822 Contact with and (suspected) exposure to COVID-19 ==

== ENCOUNTER 2022-04-19 07:27 | Day surgery (SDC) | payer MEDICARE ==
[~2022-04-19] VITALS: Ht 162.6 cm; Wt 73.9 kg
[~2022-04-19 07:27] MED LIST changes: +ceFAZolin SOD 2 GM in IV 1 EA IV ONE
[2022-04-19] MEDS ORDERED: LR 1,000 ML IV SCH ×2 (07:40→10:20)
[2022-04-19] MEDS ORDERED: INSULIN LISPRO (NovoLOG) PER UNIT SC PRN (07:40)
[2022-04-19] MEDS ORDERED: LIDOCAINE 2% 100MG/5ML SDV (FOR ANES.) As Ordered ONE (08:00)
[2022-04-19] MEDS ORDERED: fentaNYL 100 MCG/2 ML INJECTION As Ordered ONE (08:00)
[2022-04-19] MEDS ORDERED: propofoL 200 MG/20 ML VIAL As Ordered ONE (08:00)
[2022-04-19] MEDS ORDERED: MIDAZOLAM INJ 2MG/2ML VIAL (J2250 PER 1MG) As Ordered ONE (08:01)
[2022-04-19] MEDS ORDERED: ISOVUE-300 61% 50ML VIAL As Ordered ONE (09:01)
[2022-04-19] MEDS ORDERED: dexameTHASONE 4 MG/ML 1ML VIAL (J1100 PER 1MG) As Ordered ONE (09:25)
[2022-04-19] MEDS ORDERED: ACETAMINOPHEN 1000MG 100ML IV BTL (OFIRMEV) (J0131 PER 10MG) As Ordered ONE (09:29)
[2022-04-19] MEDS ORDERED: ONDANSETRON 4MG/2ML VIAL As Ordered ONE (09:45)
[2022-04-19] MEDS ORDERED: fentaNYL 100 MCG/2 ML INJECTION IV PRN (10:20)
[2022-04-19] MEDS ORDERED: ONDANSETRON 4MG/2ML VIAL IV PRN (10:20)
[2022-04-19] MEDS ORDERED: oxyBUTYnin 5 MG TAB PO PRN (10:55)
[2022-04-19] MEDS ORDERED: PERCOCET 5MG/325MG TAB PO PRN (10:55)
[2022-04-19 12:00] VITALS: BP 148/78
== END 2022-04-19 12:03 | disposition home or self-care (01) ==
LOC: M SDC 07:27
PROVIDERS: ATTEND Urology
DX: N13.2 Hydronephrosis with renal and ureteral calculous obstruction (principal); Q63.8 Other specified congenital malformations of kidney; N20.0 Calculus of kidney; E03.9 Hypothyroidism, unspecified; K21.9 Gastro-esophageal reflux disease without esophagitis; E11.9 Type 2 diabetes mellitus without complications; E78.00 Pure hypercholesterolemia, unspecified; I12.9 Hypertensive chronic kidney disease with stage 1 through stage 4 chronic kidney disease, or unspecified chronic kidney disease; N18.30 Chronic kidney disease, stage 3 unspecified; C49.9 Malignant neoplasm of connective and soft tissue, unspecified; Z92.21 Personal history of antineoplastic chemotherapy; Z92.3 Personal history of irradiation; Z88.5 Allergy status to narcotic agent; Z88.8 Allergy status to other drugs, medicaments and biological substances; Z79.51 Long term (current) use of inhaled steroids; Z79.899 Other long term (current) drug therapy; Z86.711 Personal history of pulmonary embolism; Z79.01 Long term (current) use of anticoagulants; Z79.82 Long term (current) use of aspirin
CPT/HCPCS: 52332; 74420; C1769; C2617; J0131; J0690; J1100; J2250; J2405; J3010; Q9967

== ENCOUNTER → 2022-05-09 | Outpatient (REF) | payer MEDICARE ==
[~2022-05-09] MED LIST changes: -ceFAZolin SOD 2 GM in IV 1 EA IV ONE
[2022-05-09 17:19] LABS: BACTERIA, URINE AUTO 1+ (NEGATIVE); MUCUS, URINE SMALL (NEGATIVE); RBC, URINE AUTO 48 /HPF (0-3); SQUAMOUS EPITHELIAL CELL UR AU 1 /HPF (0-6); WBC, URINE AUTO TNTC /HPF (0-3)
[2022-05-09 17:37] LABS: TOTAL PROTEIN,RANDOM URINE 67.5 MG/DL (0.0-12.0)
== END ==
LOC: M LAB REF 16:51
PROVIDERS: ATTEND Internal Medicine Nephrology
DX: R31.29 Other microscopic hematuria (principal); N18.4 Chronic kidney disease, stage 4 (severe)

== ENCOUNTER → 2022-06-26 | Outpatient (CLI) | payer MEDICARE | LOC: M RAD 10:55 | PROVIDERS: ATTEND Urology | DX: N13.1 Hydronephrosis with ureteral stricture, not elsewhere classified (principal) ==

== ENCOUNTER 2022-09-07 10:09 | Outpatient (RCR) | payer MEDICARE | END 2022-09-18 | LOC: M PT 10:09 | PROVIDERS: ATTEND Family Medicine | DX: I89.0 Lymphedema, not elsewhere classified (principal) ==

== ENCOUNTER → 2022-12-13 | Outpatient (REF) | payer MEDICARE ==
[2022-12-13 17:59] LABS: CREATININE, URINE 99.6 MG/DL
[2022-12-13 18:00] LABS: MAU/CREAT RATIO 72.2 MCG/MG (0.0-30.0)
== END ==
LOC: M LAB REF 16:55
PROVIDERS: ATTEND Nurse Practitioner Family
DX: N18.4 Chronic kidney disease, stage 4 (severe) (principal)

== ENCOUNTER → 2023-01-02 | Outpatient (CLI) | payer MEDICARE | LOC: M WHC 14:27 | PROVIDERS: ATTEND Family Medicine | DX: Z12.31 Encounter for screening mammogram for malignant neoplasm of breast (principal); Z13.820 Encounter for screening for osteoporosis ==

== ENCOUNTER → 2023-01-11 | Outpatient (REF) | payer MEDICARE | LOC: M LAB REF 09:58 | PROVIDERS: ATTEND Physician Assistant Medical | DX: M79.604 Pain in right leg (principal) ==

== ENCOUNTER → 2023-01-12 | Outpatient (CLI) | payer MEDICARE | LOC: M WHC 12:00 | PROVIDERS: ATTEND Physician Assistant Medical | DX: M79.604 Pain in right leg (principal) ==

== ENCOUNTER → 2023-02-06 | Outpatient (CLI) | payer MEDICARE | LOC: M RAD 15:14 | PROVIDERS: ATTEND Urology | DX: N20.0 Calculus of kidney (principal) ==

== ENCOUNTER 2023-03-15 10:34 | Outpatient (RCR) | payer MEDICARE | END 2023-03-18 | LOC: M PT 10:34 | PROVIDERS: ATTEND Orthopaedic Surgery | DX: M54.50 Low back pain, unspecified (principal); Z85.831 Personal history of malignant neoplasm of soft tissue; R91.8 Other nonspecific abnormal finding of lung field ==

== ENCOUNTER 2023-04-17 10:45 | Outpatient (RCR) | payer MEDICARE | END 2023-04-18 | LOC: M PT 10:45 | PROVIDERS: ATTEND Orthopaedic Surgery | DX: M54.9 Dorsalgia, unspecified (principal); C49.21 Malignant neoplasm of connective and soft tissue of right lower limb, including hip; R91.8 Other nonspecific abnormal finding of lung field ==

== ENCOUNTER → 2023-04-20 | Outpatient (CLI) | payer MEDICARE | LOC: M RAD 08:59 | PROVIDERS: ATTEND Family Medicine | DX: E04.2 Nontoxic multinodular goiter (principal) ==

== ENCOUNTER 2023-05-15 10:00 | Outpatient (RCR) | payer MEDICARE ==
[~2023-05-15 10:00] MED LIST changes: +SENN-111 PO; -SENN18TA PO
== END 2023-05-18 ==
LOC: M PT 10:00
PROVIDERS: ATTEND Orthopaedic Surgery
DX: C49.21 Malignant neoplasm of connective and soft tissue of right lower limb, including hip (principal); Z85.831 Personal history of malignant neoplasm of soft tissue; R91.8 Other nonspecific abnormal finding of lung field

== ENCOUNTER 2023-05-28 10:45 | Outpatient (RCR) | payer MEDICARE | END 2023-06-18 | LOC: M PT 10:45 | PROVIDERS: ATTEND Orthopaedic Surgery | DX: M54.9 Dorsalgia, unspecified (principal); C49.21 Malignant neoplasm of connective and soft tissue of right lower limb, including hip; R91.8 Other nonspecific abnormal finding of lung field ==

== ENCOUNTER 2023-09-12 10:47 | Outpatient (RCR) | payer MEDICARE ==
[~2023-09-12 10:47] MED LIST changes: +GLIP5TAB17 PO; -GLIP5TAB8 PO; +MECL-209 PO; -MECL1TAB31 PO
== END 2023-09-18 ==
LOC: M PT 10:47
PROVIDERS: ATTEND Family Medicine
DX: I89.0 Lymphedema, not elsewhere classified (principal); C49.21 Malignant neoplasm of connective and soft tissue of right lower limb, including hip; Z85.831 Personal history of malignant neoplasm of soft tissue; R91.8 Other nonspecific abnormal finding of lung field

== ENCOUNTER → 2023-10-03 | Outpatient (CLI) | payer MEDICARE | LOC: M RAD 13:11 | PROVIDERS: ATTEND Nurse Practitioner Family | DX: N20.0 Calculus of kidney (principal); Z95.828 Presence of other vascular implants and grafts ==

== ENCOUNTER → 2023-10-23 | Outpatient (CLI) | payer MEDICARE ==
[2023-10-23 11:32] LABS: ALBUMIN 3.6 G/DL (3.2-5.2); CALCIUM LEVEL 9.5 MG/DL (8.3-10.6); CREATININE FOR GFR 2.1 MG/DL (0.55-1.30); GLOMERULAR FILTRATION RATE 24.6 (>39); PHOSPHORUS LEVEL 3.5 MG/DL (2.4-5.1); POTASSIUM SERUM 4.2 MMOL/L (3.5-5.1)
== END ==
LOC: M LAB 09:48
PROVIDERS: ATTEND Nurse Practitioner Family
DX: E87.6 Hypokalemia (principal)

== ENCOUNTER → 2024-01-25 | Outpatient (CLI) | payer MEDICARE | LOC: M WHC 10:30 | PROVIDERS: ATTEND Family Medicine | DX: Z12.31 Encounter for screening mammogram for malignant neoplasm of breast (principal) ==

== ENCOUNTER → 2024-02-06 | Outpatient (CLI) | payer MEDICARE | LOC: M RAD 14:52 | PROVIDERS: ATTEND Urology | DX: N13.30 Unspecified hydronephrosis (principal); Q62.5 Duplication of ureter; N20.0 Calculus of kidney ==

== ENCOUNTER 2024-07-17 06:50 | Day surgery (SDC) | payer MEDICARE ==
[~2024-07-17] VITALS: Ht 162.6 cm; Wt 80.8 kg
[~2024-07-17 06:50] MED LIST changes: +GABA-1490 PO; -GABA600T4 PO; +MM S100C PO; +NS 1,000 ML IV ONE; +ONDA-282 PO; -ONDA4TAB6 PO; +SENN-188 PO; +[UNRECOGNIZED DRUG - OTHER] PO
[2024-07-17] MEDS ORDERED: SIMETHICONE 40MG/0.6ML DROPS 30ML As Ordered ONE (06:55)
[2024-07-17] MEDS ORDERED: LIDOCAINE 2% MDV 20ML VIAL As Ordered ONE (06:56)
[2024-07-17] MEDS ORDERED: propofoL 200 MG/20 ML VIAL As Ordered ONE (06:56)
[2024-07-17 08:34] VITALS: BP 107/56; O2SAT 98
== END 2024-07-17 08:49 | disposition home or self-care (01) ==
LOC: M OPP 06:50
PROVIDERS: ATTEND Surgery
DX: Z86.010 Personal history of colon polyps (principal); K63.5 Polyp of colon; K57.30 Diverticulosis of large intestine without perforation or abscess without bleeding; Z79.01 Long term (current) use of anticoagulants; Z79.1 Long term (current) use of non-steroidal anti-inflammatories (NSAID); Z79.51 Long term (current) use of inhaled steroids; Z79.82 Long term (current) use of aspirin; Z79.84 Long term (current) use of oral hypoglycemic drugs; Z79.890 Hormone replacement therapy; Z79.891 Long term (current) use of opiate analgesic; Z79.899 Other long term (current) drug therapy; Z88.5 Allergy status to narcotic agent; Z88.6 Allergy status to analgesic agent; Z88.8 Allergy status to other drugs, medicaments and biological substances; E11.9 Type 2 diabetes mellitus without complications; E03.9 Hypothyroidism, unspecified

== ENCOUNTER 2024-09-15 10:59 | Outpatient (RCR) | payer MEDICARE ==
[~2024-09-15 10:59] MED LIST changes: +GABA-1172 PO; -GABA-282 PO; -NS 1,000 ML IV ONE; -SENN-111 PO; +SENN-165 PO
== END 2024-09-18 ==
LOC: M PT 10:59
PROVIDERS: ATTEND Family Medicine
DX: I89.0 Lymphedema, not elsewhere classified (principal)

== ENCOUNTER → 2025-01-22 | Outpatient (REF) | payer MEDICARE ==
[~2025-01-22] MED LIST changes: +METF-1156 PO; -METF-817 PO
[2025-01-22 14:31] LABS: APPEARANCE, URINE HAZY (CLEAR); BACTERIA, URINE AUTO NEGATIVE (NEGATIVE); BILIRUBIN, URINE AUTO NEGATIVE (NEGATIVE); BLOOD, URINE BLOOD 3+ (NEGATIVE); COLOR, URINE YELLOW (YELLOW); GLUCOSE, URINE (UA) AUTO 2+ mg/dL (NEGATIVE); KETONE, URINE AUTO NEGATIVE (NEGATIVE); LEUKOCYTE ESTERASE, URINE AUTO TRACE (NEGATIVE); MUCUS, URINE SMALL (NEGATIVE); NITRITE, URINE AUTO NEGATIVE (NEGATIVE); PROTEIN, URINE AUTO 1+ mg/dL (NEGATIVE); RBC, URINE AUTO TNTC /HPF (0-3); SPECIFIC GRAVITY URINE AUTO 1.016 (1.002-1.035); SQUAMOUS EPITHELIAL CELL UR AU 1 /HPF (0-6); UROBILINOGEN, URINE AUTO 0.2 mg/dL (0.0-2.0); WBC, URINE AUTO 17 /HPF (0-3)
== END ==
LOC: M SMT 12:40
PROVIDERS: ATTEND Nurse Practitioner Family
DX: R39.9 Unspecified symptoms and signs involving the genitourinary system (principal)

== ENCOUNTER → 2025-01-23 | Outpatient (CLI) | payer MEDICARE | LOC: M RAD 11:59 | PROVIDERS: ATTEND Urology | DX: N20.0 Calculus of kidney (principal) ==

== ENCOUNTER → 2025-01-27 | Outpatient (CLI) | payer MEDICARE | LOC: M RAD 12:21 | PROVIDERS: ATTEND Nurse Practitioner Family | DX: R31.0 Gross hematuria (principal); N13.30 Unspecified hydronephrosis; N13.4 Hydroureter; I87.8 Other specified disorders of veins ==

== ENCOUNTER → 2025-02-18 | Outpatient (CLI) | payer MEDICARE | LOC: M WHC 10:39 | PROVIDERS: ATTEND Family Medicine | DX: Z12.31 Encounter for screening mammogram for malignant neoplasm of breast (principal) ==

== ENCOUNTER 2025-09-16 10:54 | Outpatient (RCR) | payer MEDICARE ==
[~2025-09-16 10:54] MED LIST changes: +ASPI81TA26 PO; +CIPR250T3 PO; +D32000TA2 PO; -FLOM0.4C39 PO; +METR-265 PO; +POTA-298 PO; -PRAV20TA2 PO; +PRAV20TA78 PO; +RENATAB5 PO; +TAMS-18 PO
== END 2025-09-18 ==
LOC: M PT 10:54
PROVIDERS: ATTEND Family Medicine
DX: I89.0 Lymphedema, not elsewhere classified (principal)